=== PATIENT | male | born 1955 | race Caucasian/White ===

== ENCOUNTER 2019-11-15 12:31 | Inpatient (IN) | payer BC, OTHER ==
[2019-11-15] MEDS ORDERED: SODIUM CHLORIDE 0.9% 1,000 ML IV STA (12:38)
[2019-11-15] MEDS ORDERED: SODIUM CHLORIDE 0.9% 500 ML 500 ML IV STA (12:38)
--- NOTE | 2019-11-15 12:44 | ED ---
General Adult HPI - General Chief complaint: GI Bleed Stated complaint: GI bleed Time Seen by Provider: 11/15/19 12:31 Source: patient, EMS, RN notes reviewed, old records reviewed Mode of arrival: EMS Limitations: no limitations - History of Present Illness Initial comments: this is a 64-year-old male presents to the emergency department with a past me dical history significant for alcoholism. Patient states he last drank last night about an hour to an hour and half prior to arrival he started vomiting up blood. Patient states also his stools are very black. Patient states he feels weak and lightheaded. Patient denies any chest pain or palpitations. Patient denies any abdominal pain. Patient denies any back pain. Patient denies any recent fever chills. Patient denies any injury or trauma. Patient states she's had no previous history of vomiting up blood or having a rectal bleed. - Related Data Home Medications Medication Instructions Recorded Confirmed Multivitamins, Thera [Multivitamin 1 tab PO DAILY 11/15/19 11/15/19 (formulary)] Tumeric 1 tab PO DAILY 11/15/19 11/15/19 amLODIPine BESYLATE [Norvasc] 10 mg PO DAILY 11/15/19 11/15/19 Previous Rx's Medication Instructions Recorded Aspirin 81 mg PO DAILY #30 chew 10/26/17 Pantoprazole [Protonix] 40 mg PO AC-BRKFST #30 tablet. 10/26/17 Allergies Allergy/AdvReac Type Severity Reaction Status Date / Time Penicillins Allergy Unknown Verified 11/15/19 14:01 Childhood Review of Systems ROS Statement: Those systems with pertinent positive or pertinent negative responses have been documented in the HPI. ROS Other: All systems not noted in ROS Statement are negative. Past Medical History Additional Past Medical History / Comment(s): Pacemaker, diverticulitis History of Any Multi-Drug Resistant Organisms: None Reported Additional Past Surgical History / Comment(s): colon surgery-bowel resection, cateract surgery, cyst removal Past Psychological History: No Psychological Hx Reported Smoking Status: Current every day smoker Past Alcohol Use History: Abuse, Daily Past Drug Use History: None Reported General Exam - General Exam Comments Initial Comments: GENERAL: Patient is well-developed and well-nourished. Patient is nontoxic and well- hydrated and is in mild distress. ENT: Neck is soft and supple. No significant lymphadenopathy is noted. Oropharynx is clear. Moist mucous membranes. Neck has full range of motion without eliciting any pain. EYES: The sclera were anicteric and time is pale. Extraocular movements were intact and pupils were equal round and reactive to light. Eyelids were unremarkable. PULMONARY: Unlabored respirations. Good breath sounds bilaterally. No audible rales rhonchi or wheezing was noted. CARDIOVASCULAR: There is a regular rate and rhythm without any murmurs gallops or rubs. ABDOMEN: Soft and nontender with normal bowel sounds. No palpable organomegaly was noted. There is no palpable pulsatile mass. SKIN: Sskin is pale NEUROLOGIC: Patient is alert and oriented x3. Cranial nerves II through XII are grossly intact. Motor and sensory are also intact. Normal speech, volume and content. Symmetrical smile. MUSCULOSKELETAL: Normal extremities with adequate strength and full range of motion. No lower extremity swelling or edema. No calf tenderness. LYMPHATICS: No significant lymphadenopathy is noted PSYCHIATRIC: Normal psychiatric evaluation. Limitations: no limitations Course Vital Signs 11/15/19 11/15/19 11/15/19 12:32 12:59 13:00 Temperature 97.2 F L Pulse Rate 97 103 H 98 Respiratory 20 24 26 H Rate Blood Pressure 83/34 90/56 101/57 O2 Sat by Pulse 97 95 115 H Oximetry 11/15/19 11/15/19 11/15/19 13:05 13:10 13:15 Temperature Pulse Rate 101 H 90 95 Respiratory 16 9 L 28 H Rate Blood Pressure 96/67 112/79 111/79 O2 Sat by Pulse 100 100 100 Oximetry 11/15/19 11/15/19 11/15/19 13:20 13:25 13:30 Temperature Pulse Rate 92 103 H Respiratory 14 15 19 Rate Blood Pressure 107/80 85/67 110/77 O2 Sat by Pulse 100 79 L 99 Oximetry 11/15/19 11/15/19 11/15/19 13:35 13:40 13:50 Temperature 98.2 F Pulse Rate 112 H 96 101 H Respiratory 12 19 21 Rate Blood Pressure 110/77 108/74 104/67 O2 Sat by Pulse 100 100 99 Oximetry 11/15/19 14:00 Temperature 98.1 F Pulse Rate 104 H Respiratory 17 Rate Blood Pressure 102/69 O2 Sat by Pulse 100 Oximetry Medical Decision Making - Medical Decision Making EKG shows ventricular paced rhythm at 95 bpm cure is 166 QT interval 458 QTC is 575. I spoke with Dr. Zhang and he stated that he would be down to see the patient I spoke with Dr. Warren he agreed to admit the patient admitted the patient wrote admitting orders.patient received a liter and half of fluid and a unit of blood because he was profusely vomiting. Patient vomited up approximately 1 L blood while in the emergency department. Patient's blood pressure was initially low but after some fluid and bloody responded and his blood pressure was 112 systolic. - Lab Data Result diagrams: 11/15/19 12:43 11/15/19 12:43 Lab Results 11/15/19 11/15/19 11/15/19 Range/Units 12:37 12:43 12:43 WBC 11.0 H (3.8-10.6) k/uL RBC 3.62 L (4.30-5.90) m/uL Hgb 11.3 L (13.0-17.5) gm/dL Hct 34.4 L (39.0-53.0) % MCV 95.0 (80.0-100.0) fL MCH 31.1 (25.0-35.0) pg MCHC 32.8 (31.0-37.0) g/dL RDW 12.8 (11.5-15.5) % Plt Count 289 (150-450) k/uL Neutrophils % 84 % Lymphocytes % 10 % Monocytes % 4 % Eosinophils % 0 % Basophils % 0 % Neutrophils # 9.3 H (1.3-7.7) k/uL Lymphocytes # 1.1 (1.0-4.8) k/uL Monocytes # 0.4 (0-1.0) k/uL Eosinophils # 0.0 (0-0.7) k/uL Basophils # 0.0 (0-0.2) k/uL PT (9.0-12.0) sec INR (<1.2) APTT (22.0-30.0) sec Sodium 137 (137-145) mmol/L Potassium 5.3 H (3.5-5.1) mmol/L Chloride 105 (98-107) mmol/L Carbon Dioxide 24 (22-30) mmol/L Anion Gap 8 mmol/L BUN 44 H (9-20) mg/dL Creatinine 1.10 (0.66-1.25) mg/dL Est GFR (CKD-EPI)AfAm 82 (>60 ml/min/1.73 sqM) Est GFR (CKD-EPI)NonAf 71 (>60 ml/min/1.73 sqM) Glucose 286 H (74-99) mg/dL Calcium 9.0 (8.4-10.2) mg/dL Magnesium 2.0 (1.6-2.3) mg/dL Total Bilirubin 0.8 (0.2-1.3) mg/dL AST 23 (17-59) U/L ALT 24 (4-49) U/L Alkaline Phosphatase 64 (38-126) U/L Troponin I (0.000-0.034) ng/mL Total Protein 5.9 L (6.3-8.2) g/dL Albumin 3.4 L (3.5-5.0) g/dL Serum Alcohol <10 mg/dL Blood Type Blood Type Confirm O Positive Blood Type Recheck Bld Type Recheck Status Antibody Screen Crossmatch Spec Expiration Date 11/15/19 11/15/19 11/15/19 Range/Units 12:43 12:43 12:43 WBC (3.8-10.6) k/uL RBC (4.30-5.90) m/uL Hgb (13.0-17.5) gm/dL Hct (39.0-53.0) % MCV (80.0-100.0) fL MCH (25.0-35.0) pg MCHC (31.0-37.0) g/dL RDW (11.5-15.5) % Plt Count (150-450) k/uL Neutrophils % % Lymphocytes % % Monocytes % % Eosinophils % % Basophils % % Neutrophils # (1.3-7.7) k/uL Lymphocytes # (1.0-4.8) k/uL Monocytes # (0-1.0) k/uL Eosinophils # (0-0.7) k/uL Basophils # (0-0.2) k/uL PT 10.6 (9.0-12.0) sec INR 1.0 (<1.2) APTT 22.2 (22.0-30.0) sec Sodium (137-145) mmol/L Potassium (3.5-5.1) mmol/L Chloride (98-107) mmol/L Carbon Dioxide (22-30) mmol/L Anion Gap mmol/L BUN (9-20) mg/dL Creatinine (0.66-1.25) mg/dL Est GFR (CKD-EPI)AfAm (>60 ml/min/1.73 sqM) Est GFR (CKD-EPI)NonAf (>60 ml/min/1.73 sqM) Glucose (74-99) mg/dL Calcium (8.4-10.2) mg/dL Magnesium (1.6-2.3) mg/dL Total Bilirubin (0.2-1.3) mg/dL AST (17-59) U/L ALT (4-49) U/L Alkaline Phosphatase (38-126) U/L Troponin I 0.027 (0.000-0.034) ng/mL Total Protein (6.3-8.2) g/dL Albumin (3.5-5.0) g/dL Serum Alcohol mg/dL Blood Type O Positive Blood Type Confirm Blood Type Recheck No Previous Record Bld Type Recheck Status CABO Indicated Antibody Screen NEGATIVE Crossmatch See Detail Spec Expiration Date 11/18/2019 234 Disposition Clinical Impression: GI bleed, Hematemesis, Dizziness Disposition: ADMITTED IP TO THIS [facility] Referrals: Josselyn Stark DO [Primary Care Provider] - 1-2 days Time of Disposition: 14:17
[2019-11-15] MEDS ORDERED: OCTREOTIDE 500 MCG in SODIUM CHLORIDE 0.9% 250 ML IV STA (12:45)
[2019-11-15] MEDS ORDERED: OCTREOTIDE 100 MCG/ML INJ IVP STA (12:45)
[2019-11-15 13:10] LABS: Basophils % (A) 0 %; Eosinophils % (A) 0 %; HCT 34.4 % (39.0-53.0); HGB 11.3 gm/dL (13.0-17.5); Lymphocytes # (A) 1.1 k/uL (1.0-4.8); Lymphocytes % (A) 10 %; MCH 31.1 pg (25.0-35.0); MCHC 32.8 g/dL (31.0-37.0); Mean Platelet Volume 8.7; Monocytes # (A) 0.4 k/uL (0-1.0); Monocytes % (A) 4 %; Neutrophils # (A) 9.3 k/uL (1.3-7.7); Neutrophils % (A) 84 %; Platelet Count 289 k/uL (150-450); RBC 3.62 m/uL (4.30-5.90); RDW 12.8 % (11.5-15.5)
[2019-11-15 13:18] LABS: ALT 24 U/L (4-49); AST 23 U/L (17-59); African American GFR (CKD) 82 (>60 ml/min/1.73 sqM); Albumin 3.4 g/dL (3.5-5.0); Alcohol <10 mg/dL; Alkaline Phosphatase 64 U/L (38-126); Anion Gap 8 mmol/L; Blood Urea Nitrogen 44 mg/dL (9-20); Carbon Dioxide 24 mmol/L (22-30); Chloride 105 mmol/L (98-107); Glucose 286 mg/dL (74-99); Non-African American GFR(CKD) 71 (>60 ml/min/1.73 sqM); Potassium 5.3 mmol/L (3.5-5.1); Sodium 137 mmol/L (137-145); Total Bilirubin 0.8 mg/dL (0.2-1.3); Total Protein 5.9 g/dL (6.3-8.2)
[2019-11-15] MEDS ORDERED: ONDANSETRON 4 MG/2 ML VIAL IVP STA (13:24)
[2019-11-15] MEDS ORDERED: PANTOPRAZOLE 40 MG/10 ML VIAL IVP ONE (13:24)
[2019-11-15] MEDS ORDERED: PANTOPRAZOLE 40 MG/10 ML VIAL IVP STA (13:27)
[2019-11-15 13:31] LABS: Partial Thromboplastin Time 22.2 sec (22.0-30.0); Prothrombin Time 10.6 sec (9.0-12.0)
[2019-11-15] MEDS ORDERED: SODIUM CHLORIDE 0.9% 1,000 ML IV ONE (14:20)
[2019-11-15] MEDS ORDERED: PROPOFOL 10 MG/ML 20 ML VIAL IV ONE (14:50)
[2019-11-15] MEDS ORDERED: PHENYLEPHRINE-0.9% NACL SYG 1 MG/10 ML SYRINGE ONE (14:50)
[2019-11-15] MEDS ORDERED: LIDOCAINE 1% INJ 10MG/ML (20 ML MDV) ONE (14:50)
[2019-11-15] MEDS ORDERED: LACTATED RINGERS 500 ML IV ONE (14:50)
[2019-11-15] MEDS ORDERED: fentaNYL (PF) 50 MCG/ML 2 ML AMP ONE (14:50)
--- NOTE | 2019-11-15 15:37 | P.CONS ---
History of Present Illness - Reason for Consult Consult date: 11/15/19 GI bleed Requesting physician: Jonel Beach - Chief Complaint Vomiting blood - History of Present Illness 64-year-old male with a medical history significant for prior episode of diverticulitis, alcohol abuse and prior pacemaker placement who presented to the hospital with complaints of vomiting blood. Patient reports vomiting blood prior to presentation. The patient states he also noted dark colored stool as well as a feeling of lightheadedness and feeling weak. No prior episodes of GI bleeding. Denies any excessive NSAID use. The patient does drink alcohol daily, and states he has been drinking for his whole life. He states at baseline he drinks 6-12 beers daily. He denies any abdominal pain at this time. He denies any signs or symptoms of decompensated alcoholic liver disease. Does report a remote history of colonoscopy. Review of Systems REVIEW OF SYSTEMS: CONSTITUTIONAL: Denies any fevers, chills, weight change but does report feeling weak and fatigued. CARDIOVASCULAR: Denies any chest pain, palpitations high or low blood pressures, does have a history of pacemaker placement. RESPIRATORY: Denies any shortness of breath, hemoptysis or cough. GENITOURINARY: No dysuria or hematuria. MUSCULOSKELETAL: No weakness reported. SKIN: Denies any new rashes or lesions, jaundice or pallor. PSYCHIATRIC: Denies any depression or anxiety. NEUROLOGY: Denies headache, denies any new focal deficits. EARS/NOSE/THROAT: No recent hearing change, congestion, nasal discharge or sore throat. EYES: No pain in eyes, discharge or change in vision. GASTROINTESTINAL: As per HPI. Past Medical History Additional Past Medical History / Comment(s): Pacemaker, diverticulitis History of Any Multi-Drug Resistant Organisms: None Reported Additional Past Surgical History / Comment(s): colon surgery-bowel resection, cateract surgery, cyst removal Past Psychological History: No Psychological Hx Reported Smoking Status: Current every day smoker Past Alcohol Use History: Abuse, Daily Past Drug Use History: None Reported Additional History: Family history: Reviewed with the patient and noncontributory to current medical presentation. Medications and Allergies Home Medications Medication Instructions Recorded Confirmed Type Aspirin 81 mg PO DAILY #30 chew 10/26/17 11/15/19 Rx Pantoprazole [Protonix] 40 mg PO CLARE #30 tablet. 10/26/17 11/15/19 Rx Multivitamins, Thera [Multivitamin 1 tab PO DAILY 11/15/19 11/15/19 History (formulary)] Tumeric 1 tab PO DAILY 11/15/19 11/15/19 History amLODIPine BESYLATE [Norvasc] 10 mg PO DAILY 11/15/19 11/15/19 History Allergies Allergy/AdvReac Type Severity Reaction Status Date / Time Penicillins Allergy Unknown Verified 11/15/19 14:01 Childhood Physical Exam Vitals: Vital Signs Temp Pulse Resp BP Pulse Ox 11/15/19 14:40 109 H 20 11/15/19 14:35 105 H 20 91/53 11/15/19 14:30 97 20 103/79 99 11/15/19 14:25 96 20 112/81 99 11/15/19 14:20 98 20 108/79 99 11/15/19 14:15 95 20 114/74 99 11/15/19 14:10 96 20 112/76 100 11/15/19 14:05 98 20 107/73 100 11/15/19 14:00 98.1 F 104 H 17 102/69 100 11/15/19 13:50 98.2 F 101 H 21 104/67 99 11/15/19 13:40 96 19 108/74 100 11/15/19 13:35 112 H 12 110/77 100 11/15/19 13:30 103 H 19 110/77 99 11/15/19 13:25 15 85/67 79 L 11/15/19 13:20 92 14 107/80 100 11/15/19 13:15 95 28 H 111/79 100 11/15/19 13:10 90 9 L 112/79 100 11/15/19 13:05 101 H 16 96/67 100 11/15/19 13:00 98 26 H 101/57 115 H 11/15/19 12:59 103 H 24 90/56 95 11/15/19 12:32 97.2 F L 97 20 83/34 97 Intake and Output 11/14/19 11/15/19 11/15/19 22:59 06:59 14:59 Intake Total 0 Balance 0 Intake: Blood Product 0 Rc Pheresis 2 As3 Unit 0 [id number] Other: Weight 106.594 kg On physical examination, patient appears comfortable in no apparent distress. HEAD: Normocephalic, atraumatic. EYES: No scleral icterus. No conjunctival injection. MOUTH: No lesions, tongue midline. NECK: Trachea midline, no gross abnormalities. CHEST: Clear to auscultation with no wheezing or rhonchi appreciated. HEART: S1-S2 appreciated. ABDOMEN: Soft, obese. Bowel sounds are positive. No organomegaly. No guarding or rigidity. EXTREMITIES: No pedal edema. SKIN: No rashes, no jaundice. NEUROLOGIC: Alert and oriented x3. No focal deficits. Results CBC & Chem 7: 11/15/19 12:43 11/15/19 12:43 Labs: Abnormal Lab Results - Last 24 Hours (Table) 11/15/19 11/15/19 11/15/19 Range/Units 12:43 12:43 12:43 WBC 11.0 H (3.8-10.6) k/uL RBC 3.62 L (4.30-5.90) m/uL Hgb 11.3 L (13.0-17.5) gm/dL Hct 34.4 L (39.0-53.0) % Neutrophils # 9.3 H (1.3-7.7) k/uL Potassium 5.3 H (3.5-5.1) mmol/L BUN 44 H (9-20) mg/dL Glucose 286 H (74-99) mg/dL Total Protein 5.9 L (6.3-8.2) g/dL Albumin 3.4 L (3.5-5.0) g/dL Crossmatch See Detail Assessment and Plan (1) GI bleed Narrative/Plan: 64-year-old male with a medical history significant for alcohol abuse, prior episode of diverticulitis who presented to the hospital with complaints of vomiting blood. He reports associated dark stool, dizziness and weakness. No prior episodes of GI bleeding. He denies any signs or symptoms of decompensated liver disease. Laboratory evaluation on presentation was significant for a hemoglobin of 11.3, INR 1.0, total bilirubin 0.8, AST 23, ALT 24 with a BUN elevated at 44. Unknown etiology of bleed with differential including variceal bleed given patient's extensive alcohol abuse history, peptic ulcer disease, Jennifer-Guevara tear, Dieulafoy lesion or other etiology. Current Visit: Yes Status: Acute Code(s): K92.2 - GASTROINTESTINAL HEMORRHAGE, UNSPECIFIED SNOMED Code(s): 86619667 (2) Anemia associated with acute blood loss Current Visit: Yes Status: Acute Code(s): D62 - ACUTE POSTHEMORRHAGIC ANEMIA SNOMED Code(s): 421896119 (3) Hematemesis Current Visit: Yes Status: Acute Code(s): K92.0 - HEMATEMESIS SNOMED Code(s): 8911482 Plan: supportive care Nothing by mouth Continue Protonix 40 mg twice daily Continue monitor hemoglobin and hematocrit and transfuse as needed Plan on an emergent EGD for further evaluation Patient may benefit from octreotide if varices are noted on EGD Hold anticoagulation at this time Alcohol abstinence Further recommendations pending findings of EGD Thank you for allowing us to participate in the care of the patient we will continue to follow
--- NOTE | 2019-11-15 15:47 | P.PCN ---
Date of Procedure: 11/15/19 Operative Findings: Description of Procedure: BRIEF HISTORY: 64-year-old male with a medical history significant for prior episode of diverticulitis, alcohol abuse and prior pacemaker placement who presented to the hospital with complaints of vomiting blood. Patient reports vomiting blood prior to presentation. The patient states he also noted dark colored stool as well as a feeling of lightheadedness and feeling weak. No prior episodes of GI bleeding. Denies any excessive NSAID use. The patient does drink alcohol daily, and states he has been drinking for his whole life. He states at baseline he drinks 6-12 beers daily. He denies any abdominal pain at this time. He denies any signs or symptoms of decompensated alcoholic liver disease. Does report a remote history of colonoscopy. PROCEDURE PERFORMED: Esophagogastroduodenoscopy with Endo Clip placement. PREOPERATIVE DIAGNOSIS: Hematemesis, anemia of acute blood loss. ESTIMATED BLOOD LOSS: Minimal. IV sedation per anesthesia. PROCEDURE: After informed consent was obtained, the patient was brought into the endoscopy unit. IV sedation was administered by Anesthesia under continuous monitoring. Initially the Olympus GIF-190 video endoscope was inserted into the mouth. Esophagus intubated without any difficulty. It was gradually advanced into the stomach and duodenum and carefully examined. The bulb and the second part of the duodenum appeared normal, with some old hemolyzed blood noted. The scope at this time was withdrawn to the stomach, adequately insufflated with air, and upon careful examination, mucosa of the antrum, body, cardia and the fundus appeared grossly normal with a large amount of old hemolyzed blood noted in the fundus and cardia. The scope was then withdrawn into the esophagus. The GE junction was located at 39 cm from the incisors. social tear was noted in the distal esophagus just proximal to the GE junction which was oozing blood. This was treated with Endo Clip placement, with 3 endoclips placed over the site and hemostasis achieved. Otherwise the esophagus appeared normal. The patient tolerated the procedure well IMPRESSION: 1. Mucosal tear the distal esophagus treated with Endo Clip placement 3. 2. Old hemolyzed blood noted in the stomach and small bowel. RECOMMENDATIONS: The findings of this examination were discussed with the patient and his family. Okay for ice chips today. Continue to monitor hemoglobin and hematocrit and transfuse as needed. Patient is planned to be transferred to the ICU for further management. Continue Protonix 40 mg IV twice daily. Alcohol abstinence.
[2019-11-15] MEDS ORDERED: LORazepam 2 MG/ML INJ IV PRN ×3 (16:17)
--- NOTE | 2019-11-15 16:25 | P.HPIM ---
History of Present Illness Patient is a pleasant 64-year-old male With complaints of nausea vomiting multiple episodes of hematemesis along with the dark tarry stools or melena. Patient does drink beer about 6-12 a day his last drink was yesterday evening. Patient does use and this aids but his last NSAID use was couple days ago and only takes nonsteroidal anti-inflammatories on as-needed basis for pain and gout. Patient denied any fever chills. She doesn't have any hematochezia. Patient had massive hematemesis any because of which the patient underwent emergent upper GI endoscopy expected to have esophageal varices but no varices were found and patient had esophageal tear and poorly hemolyzed blood. Patient was treated with 3 endoclips to the distal esophagus and is being admitted to intensive care unit for close clinical monitoring. Patient was started on octreotide which will be discontinued has there are no varices. Review of Systems REVIEW OF SYSTEMS: CONSTITUTIONAL: No fever, no malaise, no fatigue. HEENT: No recent visual problems or hearing problems. Denied any sore throat. CARDIOVASCULAR: No chest pain, orthopnea, PND, no palpitations, no syncope. PULMONARY: No shortness of breath, no cough, no hemoptysis. GASTROINTESTINAL as mentioned in HPI, no abdominal pain NEUROLOGICAL: No headaches, no weakness, no numbness. HEMATOLOGICAL: Denies any bleeding or petechiae. GENITOURINARY: Denies any burning micturition, frequency, or urgency. MUSCULOSKELETAL/RHEUMATOLOGICAL: Denies any joint pain, swelling, or any muscle pain. ENDOCRINE: Denies any polyuria or polydipsia. The rest of the 14-point review of systems is negative. Past Medical History Additional Past Medical History / Comment(s): Pacemaker, diverticulitis History of Any Multi-Drug Resistant Organisms: None Reported Additional Past Surgical History / Comment(s): colon surgery-bowel resection, cateract surgery, cyst removal Past Psychological History: No Psychological Hx Reported Smoking Status: Current every day smoker Past Alcohol Use History: Abuse, Daily Past Drug Use History: None Reported Medications and Allergies Home Medications Medication Instructions Recorded Confirmed Type Aspirin 81 mg PO DAILY #30 chew 10/26/17 11/15/19 Rx Pantoprazole [Protonix] 40 mg PO AC-BRKFST #30 tablet. 10/26/17 11/15/19 Rx Multivitamins, Thera [Multivitamin 1 tab PO DAILY 11/15/19 11/15/19 History (formulary)] Tumeric 1 tab PO DAILY 11/15/19 11/15/19 History amLODIPine BESYLATE [Norvasc] 10 mg PO DAILY 11/15/19 11/15/19 History Allergies Allergy/AdvReac Type Severity Reaction Status Date / Time Penicillins Allergy Unknown Verified 11/15/19 14:01 Childhood Physical Exam Vitals: Vital Signs Temp Pulse Pulse Resp BP BP Pulse Ox 11/15/19 16:05 89 16 100/75 97 11/15/19 15:51 92 16 107/77 98 11/15/19 15:44 90 16 113/75 98 11/15/19 15:26 94 16 99/69 95 11/15/19 14:40 109 H 20 11/15/19 14:35 105 H 20 91/53 11/15/19 14:30 97 20 103/79 99 11/15/19 14:25 96 20 112/81 99 11/15/19 14:20 98 20 108/79 99 11/15/19 14:15 95 20 114/74 99 11/15/19 14:10 96 20 112/76 100 11/15/19 14:05 98 20 107/73 100 11/15/19 14:00 98.1 F 104 H 17 102/69 100 11/15/19 13:50 98.2 F 101 H 21 104/67 99 11/15/19 13:40 96 19 108/74 100 11/15/19 13:35 112 H 12 110/77 100 11/15/19 13:30 103 H 19 110/77 99 11/15/19 13:25 15 85/67 79 L 11/15/19 13:20 92 14 107/80 100 11/15/19 13:15 95 28 H 111/79 100 11/15/19 13:10 90 9 L 112/79 100 11/15/19 13:05 101 H 16 96/67 100 11/15/19 13:00 98 26 H 101/57 115 H 11/15/19 12:59 103 H 24 90/56 95 11/15/19 12:32 97.2 F L 97 20 83/34 97 Intake and Output 11/15/19 11/15/19 11/15/19 06:59 14:59 22:59 Intake Total 300 Balance 300 Intake: IV 300 Blood Product 0 Rc Pheresis 2 As3 Unit 0 [id number] Other: Weight 106.594 kg PHYSICAL EXAMINATION: GENERAL: The patient is alert and oriented x3, not in any acute distress. Well developed, well nourished. HEENT: Pupils are round and equally reacting to light. EOMI. No scleral icterus. No conjunctival pallor. Normocephalic, atraumatic. No pharyngeal erythema. No thyromegaly. CARDIOVASCULAR: S1 and S2 present. No murmurs, rubs, or gallops. PULMONARY: Chest is clear to auscultation, no wheezing or crackles. ABDOMEN: Soft, nontender, nondistended, normoactive bowel sounds. No palpable organomegaly. MUSCULOSKELETAL: No joint swelling or deformity. EXTREMITIES: No cyanosis, clubbing, or pedal edema. NEUROLOGICAL: Gross neurological examination did not reveal any focal deficits. SKIN: No rashes. Results CBC & Chem 7: 11/15/19 12:43 11/15/19 12:43 Labs: Abnormal Lab Results - Last 24 Hours (Table) 11/15/19 11/15/19 11/15/19 Range/Units 12:43 12:43 12:43 WBC 11.0 H (3.8-10.6) k/uL RBC 3.62 L (4.30-5.90) m/uL Hgb 11.3 L (13.0-17.5) gm/dL Hct 34.4 L (39.0-53.0) % Neutrophils # 9.3 H (1.3-7.7) k/uL Potassium 5.3 H (3.5-5.1) mmol/L BUN 44 H (9-20) mg/dL Glucose 286 H (74-99) mg/dL Total Protein 5.9 L (6.3-8.2) g/dL Albumin 3.4 L (3.5-5.0) g/dL Crossmatch See Detail Assessment and Plan Plan: If an acute massive upper GI bleed and acute blood loss anemia secondary to upper GI bleed: Patient will be continued on Protonix and octreotide was discontinued and the patient is status post upper GI endoscopy will monitor clinically in ICU will not need repeat hemoglobins CBC will be ordered for tomorrow morning. Aspirin will be held -Leukocytosis reactive secondary to GI bleed -Tachycardia sinus tachycardia: Secondary to acute blood loss and intravasc ularly depletion -Hyperkalemia secondary to hemolysis and the absorption of potassium from the gut. Expected to improve with IV fluids 7 hypertension: Patient is presently hypotensive hold off amlodipine and his hypotension is secondary to acute GI bleed although patient is not in shock. -Elevated blood glucose: Will obtain hemoglobin A1c no history of diabetes mellitus. -Alcohol ABUSE: Counseling was provided patient doesn't believe he'll have all call withdraws although patient will be started on thiamine supplementation and will monitor for any alcohol withdrawal and will be treated accordingly -Nicotine use: Counseling was provided
[2019-11-15 16:37] LABS: Glucose,Whole Blood 189 mg/dL (75-99)
[2019-11-15 17:33] LABS: Basophils % (A) 0 %; Eosinophils % (A) 0 %; HGB 11.1 gm/dL (13.0-17.5); Lymphocytes % (A) 11 %; MCH 31.6 pg (25.0-35.0); MCHC 33.6 g/dL (31.0-37.0); MCV 94.3 fL (80.0-100.0); Mean Platelet Volume 8.8; Monocytes # (A) 0.4 k/uL (0-1.0); Monocytes % (A) 4 %; Neutrophils # (A) 7.4 k/uL (1.3-7.7); Neutrophils % (A) 83 %; Platelet Count 240 k/uL (150-450); RDW 12.9 % (11.5-15.5); WBC 8.9 k/uL (3.8-10.6)
[2019-11-15 17:40] LABS: ALT 23 U/L (4-49); AST 23 U/L (17-59); African American GFR (CKD) >90 (>60 ml/min/1.73 sqM); Albumin 3.4 g/dL (3.5-5.0); Alkaline Phosphatase 57 U/L (38-126); Anion Gap 5 mmol/L; Blood Urea Nitrogen 52 mg/dL (9-20); Calcium 8.6 mg/dL (8.4-10.2); Carbon Dioxide 23 mmol/L (22-30); Chloride 110 mmol/L (98-107); Glucose 167 mg/dL (74-99); Non-African American GFR(CKD) 83 (>60 ml/min/1.73 sqM); Sodium 138 mmol/L (137-145); Total Bilirubin 0.8 mg/dL (0.2-1.3); Total Protein 5.8 g/dL (6.3-8.2)
[2019-11-15] MEDS ORDERED: SODIUM POLYSTYRENE SULFONATE 15 GM/60 ML BOTTLE PO STA (18:24)
--- NOTE | 2019-11-15 18:42 | P.CNPUL ---
History of Present Illness Consult date: 11/15/19 Chief complaint: hematemesis History of present illness: 64-year-old male patient who came in with hematemesis and the patient was vomiting blood prior to his presentation. He also noted some dark colored stool. He felt lightheaded and weak. No previous bouts of GI bleeding. Denies taking any form of nonsteroidal anti-inflammatory medication. He does drink alcohol on a daily basis. He drinks about 6-12 beers on a daily basis. No nausea. No dominant pain. He underwent an EGD and the patient was found to have mucosal tear at the level of distal esophagus and Endo Clip was placed 3. The patient was brought into the intensive care unit following that. He is currently hemodynamically stable. His current blood pressure is 104/79. Saturation 97% on 2 L heart rate is at 93. Global stable at 11.3. The patient is nothing by mouth for now. The patient has a pacemaker inserted 3 years back for a complete heart block. He also has previous history of diverticulosis. Review of Systems Constitutional: Denies chills, Denies fever Eyes: denies as per HPI, denies blurred vision, denies bulging eye, denies decreased vision, denies diplopia, denies discharge, denies dry eye, denies irritation, denies itching, denies pain, denies photophobia, denies loss of peripheral vision, denies loss of vision, denies tunnel vision/blind spots Ears: deny: decreased hearing, ear discharge, earache, tinnitus Ears, nose, mouth and throat: Denies headache, Denies sore throat Breasts: absent: as per HPI, gynecomastia Cardiovascular: Denies chest pain, Denies shortness of breath Respiratory: Reports as per HPI Gastrointestinal: Reports as per HPI, Reports vomiting Genitourinary: Reports as per HPI Musculoskeletal: Reports as per HPI Musculoskeletal: absent: ankle pain, ankle stiffness, ankle swelling, as per HPI, elbow pain, elbow stiffness, elbow swelling, foot pain, foot stiffness, foot swelling, hand pain, hand stiffness, hand swelling, hip pain, hip stiffness, hip swelling, knee pain, knee stiffness, knee swelling, shoulder pain, shoulder stiffness, shoulder swelling, wrist pain, wrist stiffness, wrist swelling Integumentary: Reports as per HPI Neurological: Reports as per HPI, Reports weakness Psychiatric: Reports as per HPI Hematologic/Lymphatic: Reports as per HPI Allergic/Immunologic: Reports as per HPI Past Medical History Additional Past Medical History / Comment(s): Pacemaker, diverticulosis History of Any Multi-Drug Resistant Organisms: None Reported Additional Past Surgical History / Comment(s): colon surgery-bowel resection, cateract surgery, cyst removal Past Psychological History: No Psychological Hx Reported Smoking Status: Current every day smoker Past Alcohol Use History: Abuse, Daily Past Drug Use History: None Reported Medications and Allergies Home Medications Medication Instructions Recorded Confirmed Type Aspirin 81 mg PO DAILY #30 chew 10/26/17 11/15/19 Rx Pantoprazole [Protonix] 40 mg PO AC-BRKFST #30 tablet.dr 10/26/17 11/15/19 Rx Multivitamins, Thera [Multivitamin 1 tab PO DAILY 11/15/19 11/15/19 History (formulary)] Tumeric 1 tab PO DAILY 11/15/19 11/15/19 History amLODIPine BESYLATE [Norvasc] 10 mg PO DAILY 11/15/19 11/15/19 History Allergies Allergy/AdvReac Type Severity Reaction Status Date / Time Penicillins Allergy Unknown Verified 11/15/19 17:38 Childhood Physical Exam Vitals: Vital Signs Temp Pulse Pulse Resp BP BP Pulse Ox 11/15/19 16:05 89 16 100/75 97 11/15/19 16:00 16 11/15/19 15:51 92 16 107/77 98 11/15/19 15:44 90 16 113/75 98 11/15/19 15:26 94 16 99/69 95 11/15/19 14:41 98.0 F 95 18 109/78 98 11/15/19 14:40 109 H 20 11/15/19 14:35 105 H 20 91/53 11/15/19 14:30 97 20 103/79 99 11/15/19 14:25 96 20 112/81 99 11/15/19 14:20 98 20 108/79 99 11/15/19 14:15 95 20 114/74 99 11/15/19 14:10 96 20 112/76 100 11/15/19 14:05 98 20 107/73 100 11/15/19 14:00 98.1 F 104 H 17 102/69 100 11/15/19 13:50 98.2 F 101 H 21 104/67 99 11/15/19 13:40 96 19 108/74 100 11/15/19 13:35 112 H 12 110/77 100 11/15/19 13:30 103 H 19 110/77 99 11/15/19 13:25 15 85/67 79 L 11/15/19 13:20 92 14 107/80 100 11/15/19 13:15 95 28 H 111/79 100 11/15/19 13:10 90 9 L 112/79 100 11/15/19 13:05 101 H 16 96/67 100 11/15/19 13:00 98 26 H 101/57 115 H 11/15/19 12:59 103 H 24 90/56 95 11/15/19 12:32 97.2 F L 97 20 83/34 97 Intake and Output 11/15/19 11/15/19 11/15/19 06:59 14:59 22:59 Intake Total 320 Balance 320 Intake: IV 320 0.9 20 Blood Product 0 Rc Pheresis 2 As3 Unit 0 [id number] Other: Weight 106.594 kg The patient appeared well nourished and normally developed. Vital signs as documented. Head exam is unremarkable. No scleral icterus or corneal arcus noted. Neck is without jugular venous distension, thyromegaly, or carotid bruits. Carotid upstrokes are brisk bilaterally. Lungs are clear to auscultation and percussion. Cardiac exam reveals the PMI to be normally sized and situated. Rhythm is regular. First and second heart sounds normal. No murmurs, rubs or gallops. Abdominal exam reveals normal bowel sounds, no masses, no organomegaly and no aortic enlargement. Extremities are nonedematous and both femoral and pedal pulses are normal.skin the patient has a pacemaker pocket over the left anterior chest area. Results - Laboratory Findings CBC and BMP: 11/15/19 16:59 11/15/19 16:59 PT/INR, D-dimer PT 10.6 sec (9.0-12.0) 11/15/19 12:43 INR 1.0 (<1.2) 11/15/19 12:43 Abnormal lab findings: Abnormal Labs 11/15/19 11/15/19 11/15/19 12:43 12:43 12:43 WBC 11.0 H RBC 3.62 L Hgb 11.3 L Hct 34.4 L Neutrophils # 9.3 H Potassium 5.3 H Chloride BUN 44 H Glucose 286 H POC Glucose (mg/dL) Total Protein 5.9 L Albumin 3.4 L Crossmatch See Detail 11/15/19 11/15/19 11/15/19 16:25 16:59 16:59 WBC RBC 3.50 L Hgb 11.1 L Hct 33.0 L Neutrophils # Potassium 6.0 H Chloride 110 H BUN 52 H Glucose 167 H POC Glucose (mg/dL) 189 H Total Protein 5.8 L Albumin 3.4 L Crossmatch - Diagnostic Findings Chest x-ray: image reviewed Assessment and Plan Plan: 1 hematemesis related to a esophageal mucosal tear and the patient had endoscopy and placement of Endo Clip with adequate control of bleeding. Currently he has already received 2 L of IV fluids and units of packed RBC and hemoglobin level of 11.1. No signs of any ongoing GI bleeding for now. 2 upper GI bleed secondary to above 3 blood loss anemia with a hemoglobin of 11.1 4 hyperkalemia potassium level is at 6.0 5 history of pacemaker insertion for complete heart block and current rhythm is paced 6 history of diverticulosis 7 daily alcohol drinking, consider alcoholism 8 hypertension in on Norvasc Plan IV fluids with normal saline at the rate of 100 mL an hour IV Protonix 2 Amp of sodium bicarbonate addition to D50 insulin and repeat potassium and 1 hour watch for any GI bleeding Keep the patient nothing by mouth Watch for any signs of delirium tremens We'll continue to follow and keep the patient ICU for 24 hours.
[2019-11-15] MEDS ORDERED: DEXTROSE 10 % IN WATER 250 ML IV STA (18:48)
[2019-11-15] MEDS ORDERED: INSULIN REGULAR 100 UNIT/ML VIAL IV STA (18:48)
[2019-11-15] MEDS ORDERED: SODIUM BICARB 8.4% 50 ML SYR (1 MEQ/ML) IV STA (18:48)
[2019-11-15] MEDS: THIAMINE 100 MG TAB PO SCH (19:40)
[2019-11-15] MEDS: PANTOPRAZOLE 40 MG/10 ML VIAL IVP SCH (20:43)
[2019-11-16 05:11] LABS: HCT 25.9 % (39.0-53.0); MCH 31.2 pg (25.0-35.0); MCHC 33.4 g/dL (31.0-37.0); MCV 93.5 fL (80.0-100.0); Mean Platelet Volume 9.2; Platelet Count 198 k/uL (150-450); RBC 2.78 m/uL (4.30-5.90); RDW 13.3 % (11.5-15.5); WBC 8.7 k/uL (3.8-10.6)
[2019-11-16 05:25] LABS: African American GFR (CKD) >90 (>60 ml/min/1.73 sqM); Anion Gap 2 mmol/L; Blood Urea Nitrogen 37 mg/dL (9-20); Calcium 8.5 mg/dL (8.4-10.2); Carbon Dioxide 28 mmol/L (22-30); Chloride 109 mmol/L (98-107); Glucose 134 mg/dL (74-99); Non-African American GFR(CKD) >90 (>60 ml/min/1.73 sqM); Sodium 139 mmol/L (137-145)
[2019-11-16 05:33] LABS: HGB 8.7 gm/dL (13.0-17.5)
[2019-11-16] MEDS: PANTOPRAZOLE 40 MG/10 ML VIAL IVP SCH ×2 (08:34→20:04)
[2019-11-16] MEDS: MULTIVITAMINS, THERA 1 EACH TAB PO SCH (08:35)
[2019-11-16] MEDS: THIAMINE 100 MG TAB PO SCH ×2 (08:35→18:10)
--- NOTE | 2019-11-16 11:26 | P.PN ---
Subjective Progress Note Date: 11/16/19 Principal diagnosis: Acute upper GI bleeding 64-year-old male patient who came in with hematemesis and the patient was vomiting blood prior to his presentation. He also noted some dark colored stool. He felt lightheaded and weak. No previous bouts of GI bleeding. Denies taking any form of nonsteroidal anti-inflammatory medication. He does drink alcohol on a daily basis. He drinks about 6-12 beers on a daily basis. No nausea. No dominant pain. He underwent an EGD and the patient was found to have mucosal tear at the level of distal esophagus and Endo Clip was placed 3. The patient was brought into the intensive care unit following that. He is currently hemodynamically stable. His current blood pressure is 104/79. Saturation 97% on 2 L heart rate is at 93. Global stable at 11.3. The patient is nothing by mouth for now. The patient has a pacemaker inserted 3 years back for a complete heart block. He also has previous history of diverticulosis. On 11/16/2019 patient seen in follow-up in intensive care unit, he is awake and alert, oriented 3, there has been no further bleeding, no hematemesis, no black tarry stools overnight, the patient received a unit of blood this admission, and this morning his blood work shows hemoglobin of 8.7, white blood cells are 8.7, serum sodium is 139, potassium is 4.0, chloride is 109, BUN is 37 creatinine 0.8. he remains nothing by mouth. He did receive octreotide infusion, and IV fluid boluses a total of 2-1/2 L, and his maintenance IV fluids currently infusing at keep open rate, denies any abdominal pain, no nausea, vomiting or diarrhea, no complaints of chest pain or shortness of breath, no tachycardia, room air pulse ox is 94%, hemodynamically patient is stable, today's potassium is 4.0, patient was given some IV sodium bicarbonate and Kayexalate yesterday for potassium of 6.0. Patient was seen by GI service, and he did have a EGD with Endo Clip placement for the mucosal tear in the distal esophagus. Objective - Vital Signs Vital signs: Vital Signs Temp 98.0 F 11/16/19 08:00 Pulse 85 11/16/19 10:00 Resp 17 11/16/19 10:00 BP 95/66 11/16/19 10:00 Pulse Ox 94 L 11/16/19 10:00 Intake & Output 11/15/19 11/16/19 11/16/19 18:59 06:59 18:59 Intake Total 340 1220 300 Output Total 800 Balance 340 420 300 Weight 106.594 kg 109.3 kg Intake: IV 340 1220 300 0.9 40 1220 300 Blood Product 0 Rc Pheresis 2 As3 Unit 0 [id number] Output: Urine 800 Other: Voiding Method Urinal Urinal # Voids 0 - Exam GENERAL EXAM: Alert, very pleasant, 64-year-old white male comfortable in no apparent distress. HEAD: Normocephalic/atraumatic. EYES: Normal reaction of pupils, equal size. Conjunctiva pink, sclera white. NOSE: Clear with pink turbinates. THROAT: No erythema or exudates. NECK: No masses, no JVD, no thyroid enlargement, no adenopathy. CHEST: No chest wall deformity. Symmetrical expansion. LUNGS: Equal air entry with no crackles, wheeze, rhonchi or dullness. CVS: Regular rate and rhythm, normal S1 and S2, no gallops, no murmurs, no rubs ABDOMEN: Soft, nontender. No hepatosplenomegaly, normal bowel sounds, no guarding or rigidity. EXTREMITIES: No clubbing, no edema, no cyanosis, 2+ pulses and upper and lower extremities. MUSCULOSKELETAL: Muscle strength and tone normal. SPINE: No scoliosis or deformity SKIN: No rashes CENTRAL NERVOUS SYSTEM: Alert and oriented -3. No focal deficits, tone is normal in all 4 extremities. PSYCHIATRIC: Alert and oriented -3. Appropriate affect. Intact judgment and insight. - Labs CBC & Chem 7: 11/16/19 04:52 11/16/19 04:52 Labs: Abnormal Lab Results - Last 24 Hours (Table) 11/15/19 11/15/19 11/15/19 Range/Units 12:43 12:43 12:43 WBC 11.0 H (3.8-10.6) k/uL RBC 3.62 L (4.30-5.90) m/uL Hgb 11.3 L (13.0-17.5) gm/dL Hct 34.4 L (39.0-53.0) % Neutrophils # 9.3 H (1.3-7.7) k/uL Potassium 5.3 H (3.5-5.1) mmol/L Chloride (98-107) mmol/L BUN 44 H (9-20) mg/dL Glucose 286 H (74-99) mg/dL POC Glucose (mg/dL) (75-99) mg/dL Total Protein 5.9 L (6.3-8.2) g/dL Albumin 3.4 L (3.5-5.0) g/dL Crossmatch See Detail 11/15/19 11/15/19 11/15/19 Range/Units 16:25 16:59 16:59 WBC (3.8-10.6) k/uL RBC 3.50 L (4.30-5.90) m/uL Hgb 11.1 L (13.0-17.5) gm/dL Hct 33.0 L (39.0-53.0) % Neutrophils # (1.3-7.7) k/uL Potassium 6.0 H (3.5-5.1) mmol/L Chloride 110 H (98-107) mmol/L BUN 52 H (9-20) mg/dL Glucose 167 H (74-99) mg/dL POC Glucose (mg/dL) 189 H (75-99) mg/dL Total Protein 5.8 L (6.3-8.2) g/dL Albumin 3.4 L (3.5-5.0) g/dL Crossmatch 11/16/19 11/16/19 Range/Units 04:52 04:52 WBC (3.8-10.6) k/uL RBC 2.78 L (4.30-5.90) m/uL Hgb 8.7 L D (13.0-17.5) gm/dL Hct 25.9 L (39.0-53.0) % Neutrophils # (1.3-7.7) k/uL Potassium (3.5-5.1) mmol/L Chloride 109 H (98-107) mmol/L BUN 37 H (9-20) mg/dL Glucose 134 H (74-99) mg/dL POC Glucose (mg/dL) (75-99) mg/dL Total Protein (6.3-8.2) g/dL Albumin (3.5-5.0) g/dL Crossmatch Assessment and Plan Plan: Assessment: #1. Hematemesis related to esophageal mucosal tear, status post EGD and Endo Clip placement with adequate control bleeding. #2. Daily GI blood loss anemia, and patient was transfused with one unit of packed red blood cells, and was fluid resuscitated with 2-1/2 L of fluids, hemodynamically stable #3. Hyperkalemia of 6.0, improved and patient has normal renal function on today's labs, and potassium of 4.0 #4. History of permanent pacemaker insertion for history of complete heart bl ock #5. History of diverticulosis #6. Daily EtOH use, patient admits to drinking 6-12 beers daily #7. Hypertension Plan: Continue IV hydration, there has been no further bleeding overnight, he modynamically patient is stable, continue PPI therapy, patient remains nothing by mouth. Monitor for signs of delirium tremens. We'll continue to follow I performed a history & physical examination of the patient and discussed their management with my nurse practitioner, Penny Olsen. I reviewed the nurse practitioner's note and agree with the documented findings and plan of care. Lung sounds are positive for clear breath sounds. The findings and the impression was discussed with the patient. I attest to the documentation by the nurse practitioner. Time with Patient: Less than 30
[2019-11-16 11:44] LABS: Basophils % (A) 0 %; Eosinophils # (A) 0.2 k/uL (0-0.7); Eosinophils % (A) 2 %; HCT 23.6 % (39.0-53.0); HGB 8.1 gm/dL (13.0-17.5); Lymphocytes # (A) 2.1 k/uL (1.0-4.8); Lymphocytes % (A) 27 %; MCH 31.8 pg (25.0-35.0); MCHC 34.2 g/dL (31.0-37.0); Mean Platelet Volume 9.3; Monocytes # (A) 0.3 k/uL (0-1.0); Monocytes % (A) 5 %; Neutrophils # (A) 4.9 k/uL (1.3-7.7); Neutrophils % (A) 64 %; Platelet Count 182 k/uL (150-450); RBC 2.53 m/uL (4.30-5.90); RDW 13.4 % (11.5-15.5); WBC 7.7 k/uL (3.8-10.6)
--- NOTE | 2019-11-16 13:27 | P.PN ---
Subjective Patient is admitted secondary to esophageal tear patient had 1 dark stool today which is probably from the retained blood from yesterday. Patient doesn't have any hematemesis or abdominal pain at this time doesn't have any alcohol withdrawals at this time. Patient is clinically doing well and monitor him 1 more night because of his massive GI bleed the patient is clinically doing well will be discharged tomorrow on proton pump inhibitor. Constitutional: Denied any fatigue denied any fever. Cardio vascular: denied any chest pain, palpitations Gastrointestinal denied any nausea vomiting Pulmonary: Denied any shortness of breath cough Neurologic denied any new focal deficits All inpatient medications were reviewed and appropriate changes in these medications as dictated in the interval history and assessment and plan. Objective - Vital Signs Vital signs: Vital Signs Temp 98.4 F 11/16/19 11:00 Pulse 85 11/16/19 12:00 Resp 14 11/16/19 12:00 BP 105/67 11/16/19 12:00 Pulse Ox 95 11/16/19 12:00 Intake & Output 11/15/19 11/16/19 11/16/19 18:59 06:59 18:59 Intake Total 650 1220 500 Output Total 800 900 Balance 650 420 -400 Weight 106.594 kg 109.3 kg Intake: IV 340 1220 400 0.9 40 1220 400 Intake, IV Titration 100 Amount Sodium Chloride 0.9% 1, 100 000 ml @ 100 mls/hr IV . Q10H ONE Rx#:[id number] Blood Product 310 Rc Pheresis 2 As3 Unit 310 [id number] Output: Urine 800 900 Other: Voiding Method Urinal Urinal # Voids 0 0 - Exam PHYSICAL EXAMINATION: GENERAL: The patient is alert and oriented x3, not in any acute distress. Well developed, well nourished. HEENT: Pupils are round and equally reacting to light. EOMI. no scleral icterus. does have conjunctival pallor. Normocephalic, atraumatic. No pharyngeal erythema. No thyromegaly. CARDIOVASCULAR: S1 and S2 present. No murmurs, rubs, or gallops. PULMONARY: Chest is clear to auscultation, no wheezing or crackles. ABDOMEN: Soft, nontender, nondistended, normoactive bowel sounds. No palpable organomegaly. MUSCULOSKELETAL: No joint swelling or deformity. EXTREMITIES: No cyanosis, clubbing, or pedal edema. NEUROLOGICAL: Gross neurological examination did not reveal any focal deficits. SKIN: No rashes. - Labs CBC & Chem 7: 11/16/19 11:11 11/16/19 04:52 Labs: Abnormal Lab Results - Last 24 Hours (Table) 11/15/19 11/15/19 11/15/19 Range/Units 12:43 16:25 16:59 RBC 3.50 L (4.30-5.90) m/uL Hgb 11.1 L (13.0-17.5) gm/dL Hct 33.0 L (39.0-53.0) % Potassium (3.5-5.1) mmol/L Chloride (98-107) mmol/L BUN (9-20) mg/dL Glucose (74-99) mg/dL POC Glucose (mg/dL) 189 H (75-99) mg/dL Total Protein (6.3-8.2) g/dL Albumin (3.5-5.0) g/dL Crossmatch See Detail 11/15/19 11/16/19 11/16/19 Range/Units 16:59 04:52 04:52 RBC 2.78 L (4.30-5.90) m/uL Hgb 8.7 L D (13.0-17.5) gm/dL Hct 25.9 L (39.0-53.0) % Potassium 6.0 H (3.5-5.1) mmol/L Chloride 110 H 109 H (98-107) mmol/L BUN 52 H 37 H (9-20) mg/dL Glucose 167 H 134 H (74-99) mg/dL POC Glucose (mg/dL) (75-99) mg/dL Total Protein 5.8 L (6.3-8.2) g/dL Albumin 3.4 L (3.5-5.0) g/dL Crossmatch 11/16/19 Range/Units 11:11 RBC 2.53 L (4.30-5.90) m/uL Hgb 8.1 L (13.0-17.5) gm/dL Hct 23.6 L (39.0-53.0) % Potassium (3.5-5.1) mmol/L Chloride (98-107) mmol/L BUN (9-20) mg/dL Glucose (74-99) mg/dL POC Glucose (mg/dL) (75-99) mg/dL Total Protein (6.3-8.2) g/dL Albumin (3.5-5.0) g/dL Crossmatch Assessment and Plan Plan: If an acute massive upper GI bleed and acute blood loss anemia secondary to upper GI bleed: Patient will be continued on Protonix patient will not require any aspirin upon discharge patient will be monitored one more night no more GI bleed clinically will be discharged tomorrow -Leukocytosis reactive secondary to GI bleed resolved now -Tachycardia sinus tachycardia: Secondary to acute blood loss and intravascul gaurang depletion, improved now -Hyperkalemia secondary to hemolysis and the absorption of potassium from the gut. Improved 7 hypertension: hypotensive hold off amlodipine, blood pressures better now -Elevated blood glucose: hemoglobin A1c, pending no history of diabetes mellitus. -Alcohol ABUSE: Patient on alcohol withdrawal protocol but doesn't have any withdrawals at this time -Nicotine use: Counseling was provided
[2019-11-16 14:57] LABS: Hemoglobin A1C 5.9 % (4.0-6.0)
[2019-11-16] MEDS: SODIUM CHLORIDE 0.9% 1,000 ML IV SCH (18:10)
[2019-11-16 18:55] LABS: Basophils % (A) 0 %; Eosinophils # (A) 0.2 k/uL (0-0.7); Eosinophils % (A) 3 %; HCT 23.5 % (39.0-53.0); Lymphocytes # (A) 2.1 k/uL (1.0-4.8); Lymphocytes % (A) 28 %; MCH 32.3 pg (25.0-35.0); MCHC 34.2 g/dL (31.0-37.0); MCV 94.7 fL (80.0-100.0); Monocytes # (A) 0.3 k/uL (0-1.0); Monocytes % (A) 4 %; Neutrophils # (A) 4.7 k/uL (1.3-7.7); Neutrophils % (A) 63 %; Platelet Count 192 k/uL (150-450); RBC 2.48 m/uL (4.30-5.90); RDW 13.2 % (11.5-15.5); WBC 7.5 k/uL (3.8-10.6)
--- NOTE | 2019-11-16 19:46 | P.PN ---
Subjective Progress Note Date: 11/16/19 Principal diagnosis: Upper GI bleed, anemia of acute blood loss, distal esophageal mucosal tear Patient is seen lying in bed. Tolerated liquid diet today. No abdominal pain. Only one dark stool since admission. Objective - Vital Signs Vital signs: Vital Signs Temp 98.4 F 11/16/19 16:00 Pulse 85 11/16/19 16:00 Resp 16 11/16/19 16:00 BP 102/64 11/16/19 16:00 Pulse Ox 94 L 11/16/19 16:00 Intake & Output 11/15/19 11/16/19 11/16/19 18:59 06:59 18:59 Intake Total 650 1220 700 Output Total 800 1800 Balance 650 420 -1100 Weight 106.594 kg 109.3 kg Intake: IV 340 1220 600 0.9 40 1220 600 Intake, IV Titration 100 Amount Sodium Chloride 0.9% 1, 100 000 ml @ 100 mls/hr IV . Q10H ONE Rx#:[id number] Blood Product 310 Rc Pheresis 2 As3 Unit 310 [id number] Output: Urine 800 1800 Other: Voiding Method Urinal Urinal # Voids 0 0 - Exam On physical examination, patient appears comfortable in no apparent distress. HEAD: Normocephalic, atraumatic. EYES: No scleral icterus. No conjunctival injection. MOUTH: No lesions, tongue midline. NECK: Trachea midline, no gross abnormalities. CHEST: Clear to auscultation with no wheezing or rhonchi appreciated. HEART: Regular rate and rhythm. ABDOMEN: Soft, obese. Bowel sounds are positive. No organomegaly. No guarding or rigidity. EXTREMITIES: No pedal edema. SKIN: No rashes, no jaundice. NEUROLOGIC: Alert and oriented x3. No focal deficits. - Labs CBC & Chem 7: 11/16/19 18:30 11/16/19 04:52 Labs: Abnormal Lab Results - Last 24 Hours (Table) 11/15/19 11/15/19 11/15/19 Range/Units 12:43 16:59 16:59 RBC 3.50 L (4.30-5.90) m/uL Hgb 11.1 L (13.0-17.5) gm/dL Hct 33.0 L (39.0-53.0) % Potassium 6.0 H (3.5-5.1) mmol/L Chloride 110 H (98-107) mmol/L BUN 52 H (9-20) mg/dL Glucose 167 H (74-99) mg/dL Total Protein 5.8 L (6.3-8.2) g/dL Albumin 3.4 L (3.5-5.0) g/dL Crossmatch See Detail 11/16/19 11/16/19 11/16/19 Range/Units 04:52 04:52 11:11 RBC 2.78 L 2.53 L (4.30-5.90) m/uL Hgb 8.7 L D 8.1 L (13.0-17.5) gm/dL Hct 25.9 L 23.6 L (39.0-53.0) % Potassium (3.5-5.1) mmol/L Chloride 109 H (98-107) mmol/L BUN 37 H (9-20) mg/dL Glucose 134 H (74-99) mg/dL Total Protein (6.3-8.2) g/dL Albumin (3.5-5.0) g/dL Crossmatch Assessment and Plan (1) GI bleed Narrative/Plan: 64-year-old male with a medical history significant for alcohol abuse, prior episode of diverticulitis who presented to the hospital with complaints of vomiting blood. He reports associated dark stool, dizziness and weakness. No prior episodes of GI bleeding. He denies any signs or symptoms of decompensated liver disease. Laboratory evaluation on presentation was significant for a hemoglobin of 11.3, INR 1.0, total bilirubin 0.8, AST 23, ALT 24 with a BUN elevated at 44 with hemoglobin 8.7 today. EGD performed yesterday significant for a mucosal tear in the distal esophagus which was treated with Endo Clip placement 3. Current Visit: Yes Status: Acute Code(s): K92.2 - GASTROINTESTINAL HEMORRHAGE, UNSPECIFIED SNOMED Code(s): 51693743 (2) Anemia associated with acute blood loss Current Visit: Yes Status: Acute Code(s): D62 - ACUTE POSTHEMORRHAGIC ANEMIA SNOMED Code(s): 969113090 (3) Hematemesis Current Visit: Yes Status: Acute Code(s): K92.0 - HEMATEMESIS SNOMED Code(s): 3361674 Plan: supportive care Clear liquid diet this morning, advance to full liquid diet this evening and a soft diet tomorrow morning if patient remains hemodynamically stable with no further signs or symptoms of GI bleeding Continue Protonix 40 mg twice daily Continue monitor hemoglobin and hematocrit and transfuse as needed Plan on an emergent EGD for further evaluation Alcohol abstinence Okay for discharge tomorrow if bilirubin remains stable and patient tolerates diet without any further signs or symptoms of GI bleeding Thank you for allowing us to participate in the care of the patient, the GI service will stand by, please call us back with any questions or concerns
[2019-11-17 07:21] VITALS: BP 101/61; PULSE 73; RESP 17; TEMP 98.1
[2019-11-17 08:54] LABS: HCT 23.2 % (39.0-53.0); HGB 7.8 gm/dL (13.0-17.5); MCH 31.6 pg (25.0-35.0); MCHC 33.7 g/dL (31.0-37.0); MCV 93.8 fL (80.0-100.0); Mean Platelet Volume 8.8; Platelet Count 182 k/uL (150-450); RBC 2.48 m/uL (4.30-5.90); RDW 13.4 % (11.5-15.5); WBC 7.4 k/uL (3.8-10.6)
[2019-11-17] MEDS: THIAMINE 100 MG TAB PO SCH (09:42)
[2019-11-17] MEDS: SODIUM CHLORIDE 0.9% 1,000 ML IV SCH (09:42)
[2019-11-17] MEDS: PANTOPRAZOLE 40 MG/10 ML VIAL IVP SCH (09:42)
[2019-11-17] MEDS: MULTIVITAMINS, THERA 1 EACH TAB PO SCH (09:42)
--- NOTE | 2019-11-20 17:47 | P.DS ---
Providers Date of admission: 11/15/19 14:21 Attending physician: Kenny Warren Consults: 11/15/19 18:22 Consult Physician Routine Consulting Provider: Javon Magaña Consult Reason/Comments: ICU management Do you want consulting provider notified?: Already Contacted Primary care physician: Josselyn Stark [facility] Course: Patient is admitted secondary to esophageal tear patient had 1 dark stool today which is probably from the retained blood from yesterday. Patient doesn't have any hematemesis or abdominal pain at this time doesn't have any alcohol withdrawals at this time. Patient is clinically doing well and monitor him 1 more night because of his massive GI bleed the patient is clinically doing well will be discharged tomorrow on proton pump inhibitor. 11/17/2019 patient is clinically doing well no overnight events patient will be discharged no evidence of GI bleed any more. Patient will be discharged on Protonix. PHYSICAL EXAMINATION: GENERAL: The patient is alert and oriented x3, not in any acute distress. Well developed, well nourished. HEENT: Pupils are round and equally reacting to light. EOMI. no scleral icterus. does have conjunctival pallor. Normocephalic, atraumatic. No pharyngeal erythema. No thyromegaly. CARDIOVASCULAR: S1 and S2 present. No murmurs, rubs, or gallops. PULMONARY: Chest is clear to auscultation, no wheezing or crackles. ABDOMEN: Soft, nontender, nondistended, normoactive bowel sounds. No palpable organomegaly. MUSCULOSKELETAL: No joint swelling or deformity. EXTREMITIES: No cyanosis, clubbing, or pedal edema. NEUROLOGICAL: Gross neurological examination did not reveal any focal deficits. SKIN: No rashes. Assessment and Plan Plan: acute massive upper GI bleed and acute blood loss anemia secondary to upper GI bleed: Patient will be continued on Protonix , aspirin will be discontinued -Leukocytosis reactive secondary to GI bleed resolved now -Tachycardia sinus tachycardia: Secondary to acute blood loss and intravascularly depletion, improved now -Hyperkalemia secondary to hemolysis and the absorption of potassium from the gut. Improved 7 hypertension: -Elevated blood glucose: hemoglobin A1c, pending the time of discharge -Alcohol ABUSE: Patient on alcohol withdrawal protocol but doesn't have any withdrawals at this time -Nicotine use: Counseling was provided Plan - Discharge Summary New Discharge Prescriptions: New Pantoprazole Sodium [Protonix] 20 mg PO AC-BID #60 tablet. Discontinued Aspirin 81 mg PO DAILY #30 chew Pantoprazole [Protonix] 40 mg PO AC-BRKFST #30 tablet. amLODIPine BESYLATE [Norvasc] 10 mg PO DAILY Multivitamins, Thera [Multivitamin (formulary)] 1 tab PO DAILY No Action Tumeric 1 tab PO DAILY Discharge Medication List Tumeric 1 tab PO DAILY 11/15/19 [History] Pantoprazole Sodium [Protonix] 20 mg PO AC-BID #60 tablet. 11/17/19 [Rx] Follow up Appointment(s)/Referral(s): Josselyn Stark DO [Primary Care Provider] - 3 Days Patient Instructions/Handouts: Gastrointestinal Bleeding (DC) Activity/Diet/Wound Care/Special Instructions: Soft diet as tolerated. No alcohol. Follow with primary care and get CBC re-drawn (blood levels) Discharge Disposition: HOME SELF-CARE
--- NOTE | 2019-11-22 09:33 | CDI ---
Documentation Clarification Form Date: 11/22/19 From: Alva Avalos Phone: If you have a question about this query, please contact Katy Jett, Sales Representative Advertising at [phone] between 8am and 5pm. Admit Date: 11/15/19 Discharge Date:11/17/19 Patient Name: Jus Rooney Visit Number: [id number] ATTENTION: The Clinical Documentation Specialists (CDI) and [facility] Coding Staff appreciate your assistance in clarifying documentation. Please respond to the clarification below the line at the bottom and electronically sign. The CDI & [facility] Coding staff will review the response and follow-up if needed. Please note: Queries are made part of the Legal Health Record. If you have any questions, please contact the author of this message via ITS. Dear Dr. Darshana Louise The patient presented with complaints of nausea and vomiting and multiple episodes of hematemesis along with the dark tarry stools or melena. Patient was found to have a mucosal tear at the distal esophagus. History/Risk Factors: Alcohol abuse Clinical Indicators: Hematemesis Lab findings: Hgb 11.3 on admit and 7.8 on 11/17, Hct. 24.4 on admit and 23.2 on 11/17 Vital Signs: T. 99.8, P. 80, R. 15, BP 83/34 Treatment: EGD with endoclips In your professional opinion, can you please further clarify esophageal mucosal tear? Jennifer-Guevara Tear Due to injury Other, please specify Unable to determine Jennifer-Guevara Tear MTDD
== END 2019-11-17 12:51 | disposition home or self-care (01) | DRG 369 ==
LOC: EC 12:31 → SUPCPDRO 12:31 → 3SCARD 14:21 → 2SICU 15:19 → 4SSUR 11-16 21:40
PROVIDERS: ADMIT Internal Medicine; ATTEND Internal Medicine
PROC: 30233N1 Transfusion of Nonautologous Red Blood Cells into Peripheral Vein, Percutaneous Approach (ICD-10-PCS; 2019-11-15)
PROC: 0W3P8ZZ Control Bleeding in Gastrointestinal Tract, Via Natural or Artificial Opening Endoscopic (ICD-10-PCS; principal; 2019-11-15 14:47)
DX: K22.6 Gastro-esophageal laceration-hemorrhage syndrome (principal); D62 Acute posthemorrhagic anemia; I44.2 Atrioventricular block, complete; K92.0 Hematemesis; I95.9 Hypotension, unspecified; D72.829 Elevated white blood cell count, unspecified; E87.5 Hyperkalemia; F10.10 Alcohol abuse, uncomplicated; F17.200 Nicotine dependence, unspecified, uncomplicated; I10 Essential (primary) hypertension; M10.9 Gout, unspecified; R73.9 Hyperglycemia, unspecified; K57.90 Diverticulosis of intestine, part unspecified, without perforation or abscess without bleeding; Z79.82 Long term (current) use of aspirin; Z79.899 Other long term (current) drug therapy; Z95.0 Presence of cardiac pacemaker; Z88.0 Allergy status to penicillin; Z98.49 Cataract extraction status, unspecified eye; Z96.1 Presence of intraocular lens
CPT/HCPCS: 36415; 36430; 43255; 80048; 80053; 80320; 82728; 83036; 83735; 84132; 84484; 85025; 85027; 85610; 85730; 86850; 86900; 86901; 86920; 93005; 96361; 96365; 96374; 96375; 96376; 99285

== ENCOUNTER → 2020-05-13 | Outpatient (CLI) | payer MEDICARE ==
--- NOTE | 2020-05-13 12:51 | CT ---
EXAMINATION TYPE: CT brain wo con DATE OF EXAM: 05/13/2020 COMPARISON: 10/23/2017 INDICATION: Right arm weakness x5 days. DLP: 1017.6 mGycm, Automated exposure control for dose reduction was used. CONTRAST: None CT of the brain is performed utilizing 3 mm thick sections through the posterior fossa and 3 mm thick sections through the remaining calvarium. Study is performed within 24 hours of arrival to the hosp ital. No abnormal hyperdensity is present to suggest an acute intracranial hemorrhage. No mass lesion is evident. No acute infarcts are evident. Ventricles and sulci are appropriate for the patient age. Paranasal sinuses and mastoid air cells within the [id number] are clear. Subcutaneous nodules are within the scalp. IMPRESSIONS: 1. No acute intracranial process 2. Subcutaneous nodules present previously.
== END | disposition home or self-care (01) ==
LOC: RADCTMAIN 12:19
PROVIDERS: ATTEND Family Medicine
DX: R22.0 Localized swelling, mass and lump, head (principal); I69.339 Monoplegia of upper limb following cerebral infarction affecting unspecified side; R53.1 Weakness
CPT/HCPCS: 70450

== ENCOUNTER 2021-07-31 18:38 | Inpatient (IN) | payer MEDICARE ==
[2021-07-31] MEDS ORDERED: PROPOFOL 10 MG/ML 20 ML VIAL IV ONE (18:58)
[2021-07-31] MEDS ORDERED: SODIUM CHLORIDE 0.9% 1,000 ML IV STA (18:59)
--- NOTE | 2021-07-31 19:20 | XR ---
EXAMINATION TYPE: XR ankle limited RT DATE OF EXAM: 07/31/2021 COMPARISON: NONE HISTORY: Twisted ankle. Pain. TECHNIQUE: 2 views FINDINGS: There is a lateral dislocation of the talus. There is transverse fracture of the medial mal leolus with lateral displacement 2.2 cm. There is comminuted fracture distal shaft of the fibula with separation of the distal fibula tibia joint. There is no definite posterior malleolus fracture. Ther e is plantar calcaneal spurring. IMPRESSION: Bimalleolar fracture of the ankle with lateral dislocation of the talus.
--- NOTE | 2021-07-31 19:25 | ED ---
General Adult HPI - General Chief complaint: Extremity Injury, Lower Stated complaint: Ankle Injury Source: patient Mode of arrival: EMS Limitations: no limitations - History of Present Illness Initial comments: Dictation was produced using [employer] dictation software. please excuse any grammatical, word or spelling errors. Chief Complaint: 65-year-old male presents with leg injury History of Present Illness: This 65-year-old male is brought in by EMS. Patient they said he tried to take a step off of a stump when his right ankle inverted. He noticed severe intense pain to his right ankle. EMS was called. EMS placed patient in a splint. Patient reports having had 8 beers he has history of surgery. Hasn't had no problems with anesthesia.. The ROS documented in this emergency department record has been reviewed and confirmed by me. Those systems with pertinent positive or negative responses have been documented in the HPI. All other systems are other negative and/or noncontributory. PHYSICAL EXAM: General Impression: Alert and oriented x3, not in acute distress HEENT: Normocephalic atraumatic, extra-ocular movements intact, pupils equal and reactive to light bilaterally, mucous membranes moist. Cardiovascular: Heart regular rate and rhythm Chest: Able to complete full sentences, no retractions, no tachypnea Musculoskeletal: Pulses present and equal in all extremities, no peripheral edema Motor: no focal deficits noted Neurological: CN II-XII grossly intact, no focal motor or sensory deficits noted Skin: Intact with no visualized rashes Right lower extremity: Dislocated right ankle with lateral rotation ED course: 65-year-old male presents with what appears to be a fracture dislocation to the right ankle. Attempt was made to reduce ankle without any sedation however he did not tolerated. As upon arrival are within acceptable limits. Patient is given 150 mg propofol. Reduction was performed. Splint was applied. Tolerated procedure well. Crutches at the bedside. He is given outpatient referral to orthopedic surgery. He is told to be nonweightbearing to the right lower extremity. Patient is prescribed by mouth analgesics. Patient agreeable with discharge. Patient to follow-up with orthopod on Tuesday. - Related Data Home Medications Medication Instructions Recorded Confirmed Albuterol Sulfate [Albuterol 2 puff PO RT-Q6H PRN 07/31/21 07/31/21 Sulfate Hfa] Pantoprazole Sodium [Protonix] 20 mg PO BID 07/31/21 07/31/21 amLODIPine BESYLATE/BENAZEPRIL 1 cap PO DAILY 07/31/21 07/31/21 [amLODIPine BESYLATE/BENAZEPRIL 10-20 mg] Previous Rx's Medication Instructions Recorded HYDROcodone/APAP 5-325MG [[place] 1 tab PO Q6HR PRN 3 Days #12 tab 07/31/21 5-325] Allergies Allergy/AdvReac Type Severity Reaction Status Date / Time Penicillins Allergy Unknown Verified 07/31/21 20:08 Childhood Review of Systems ROS Statement: Those systems with pertinent positive or pertinent negative responses have been documented in the HPI. ROS Other: All systems not noted in ROS Statement are negative. Past Medical History Additional Past Medical History / Comment(s): Pacemaker, diverticulosis History of Any Multi-Drug Resistant Organisms: None Reported Additional Past Surgical History / Comment(s): colon surgery-bowel resection, cateract surgery, cyst removal Past Psychological History: No Psychological Hx Reported Smoking Status: Current every day smoker Past Alcohol Use History: Abuse, Daily Past Drug Use History: Marijuana General Exam Limitations: no limitations Course Vital Signs 07/31/21 07/31/21 07/31/21 18:44 19:10 19:15 Temperature 97.8 F Pulse Rate 85 87 86 Respiratory 22 18 10 L Rate Blood Pressure 115/84 115/84 131/109 O2 Sat by Pulse 98 97 95 Oximetry 07/31/21 19:20 Temperature Pulse Rate 91 Respiratory 19 Rate Blood Pressure 150/95 O2 Sat by Pulse 95 Oximetry Procedures - Orthopedic Fracture Reduction Fracture #1 Consent Obtained: verbal consent, written consent Side: right Fracture Reduction Location: other (ankle) Analgesia: procedural sedation Technique: direct manipulation Post Reduction X-rays Demonstrate: anatomical reduction Post-Reduction Neuro Exam: intact Post-Reduction Vascular Exam: intact Splint Applied: Yes Patient Tolerated Procedure: well - Orthopedic Splinting/Casting Injury #1 Side: right Lower Extremity Injury Location: ankle Other Orthopedic Equipment: crutches - Procedural Sedation Procedural Sedation Start Time: 19:10 Procedural Sedation Stop Time: 19:20 Indications: fracture/dislocation reduction ASA Class: II Mallampati Airway Score: 2 Preparation: quality assurance monitor chassis applied, pulse oximeter, capnometry used, supplemental O2 applied IV Propofol Dose (mgs): 150 Complications: hypoventilation Interventions: assist by BVM Patient Tolerated Procedure: well Disposition Clinical Impression: Ankle fracture Disposition: HOME SELF-CARE Condition: Good Instructions (If sedation given, give patient instructions): Ankle Fracture (ED), Procedural Sedation (ED) Additional Instructions: Nonweightbearing to fractured ankle and elevate when at rest as much as possible. Prescriptions: HYDROcodone/APAP 5-325MG [[place] 5-325] 1 tab PO Q6HR PRN 3 Days #12 tab PRN Reason: Severe Pain Is patient prescribed a controlled substance at d/c from ED?: Yes If prescribed controlled substance>3 days was MAPS reviewed?: Prescribed <3 Days Referrals: Demarcus Estrada MD [Medical Doctor] - 1-2 days
--- NOTE | 2021-07-31 19:43 | XR ---
EXAMINATION TYPE: XR ankle complete RT DATE OF EXAM: 07/31/2021 COMPARISON: Today HISTORY: Post reduction TECHNIQUE: 2 views FINDINGS: There is bimalleolar fracture of the ankle. The talus is in reasonable anatomic position. T here is comminuted fracture distal fibula. There is plantar calcaneal spurring. IMPRESSION: There is satisfactory anatomic reduction of the bimalleolar fracture of the ankle compare d to initial exam.
[2021-07-31] MEDS ORDERED: ACET/COD 300 MG/30 MG STARTER PACK 6 TAB BTL PO STA (20:15)
[2021-07-31] MEDS ORDERED: NALOXONE 0.4 MG/ML 1 ML VIAL IV PRN (20:21)
--- NOTE | 2021-07-31 20:21 | ED ---
Medical Decision Making - Medical Decision Making She was about to be discharged when Dr. Estrada called back and requested that patient be admitted for possible surgical intervention tomorrow if there is enough reduction in swelling. Medicine consulted for medical clearance. Preop labs, chest x-ray and EKG ordered. Disposition Clinical Impression: Ankle fracture Disposition: ADMITTED IP TO THIS [facility] Condition: Good Instructions (If sedation given, give patient instructions): Ankle Fracture (ED), Procedural Sedation (ED) Additional Instructions: Nonweightbearing to fractured ankle and elevate when at rest as much as possible. Prescriptions: HYDROcodone/APAP 5-325MG [[place] 5-325] 1 tab PO Q6HR PRN 3 Days #12 tab PRN Reason: Severe Pain Referrals: Demarcus Estrada MD [Medical Doctor] - 1-2 days Procedures - [place] Protocol (Time Out) Procedure Performed:: Dr. Bobo Nurse: Arslan Horton Respiratory Therapist: Xiang Jasso Patient Identification (2 identifiers required): Chart, Verbal, Arm Band, Name, Birthdate Patient/Legal [employer] has Confirmed: Identity, Site, Procedure, Consent Site: Right Ankle Site Marked: Not Applicable Site Verified With Patient/Guardian: Yes Final Confirmation: Procedure
--- NOTE | 2021-07-31 21:21 | XR ---
EXAMINATION TYPE: XR chest 1V DATE OF EXAM: 07/31/2021 COMPARISON: 10/26/2017 HISTORY: Preop TECHNIQUE: FINDINGS: Heart and mediastinum are normal. Lungs are clear. Diaphragm is normal. There are no hilar masses. There is left axillary pacemaker. There are chest leads. Bony thorax appears intact. IMPRESSION: No active cardiopulmonary disease. No change.
[2021-07-31] MEDS: MORPHINE SULFATE 4 MG/ML SYRINGE IV PRN (21:29)
[2021-07-31] MEDS: SODIUM CHLORIDE 0.9% 1,000 ML IV SCH (21:30)
[2021-07-31 21:51] LABS: Basophils % (A) 0 %; Eosinophils # (A) 0.1 k/uL (0-0.7); Eosinophils % (A) 1 %; HCT 45.7 % (39.0-53.0); HGB 15.3 gm/dL (13.0-17.5); Lymphocytes # (A) 1.2 k/uL (1.0-4.8); Lymphocytes % (A) 12 %; MCH 31.9 pg (25.0-35.0); MCHC 33.6 g/dL (31.0-37.0); Mean Platelet Volume 8.7; Monocytes # (A) 0.5 k/uL (0-1.0); Monocytes % (A) 5 %; Neutrophils # (A) 8.4 k/uL (1.3-7.7); Neutrophils % (A) 80 %; Platelet Count 206 k/uL (150-450); RBC 4.81 m/uL (4.30-5.90); RDW 13.1 % (11.5-15.5); WBC 10.5 k/uL (3.8-10.6)
--- NOTE | 2021-07-31 22:00 | CT ---
CT scan of the right ankle. History fracture. Comparison none. TECHNIQUE: Images obtained from the mid tibia to the bottom of the foot without contrast. FINDINGS: There is oblique fracture distal shaft of the fibula with comminution. This is a spiral type fracture . There is also transverse fracture through the medial malleolus. There is lateral displacement of th e talus 13 mm. The talus appears intact. There is plantar calcaneal spurring. Calcaneus is intact. Elbert andressa of the midfoot appear intact. There is a 2.5 x 0.8 cm large chip fracture of the posterior malleo lizzie. There is mild posterior displacement of the talus. There is subcutaneous edema around the ankle and hindfoot. IMPRESSION: There is trimalleolar fracture of the ankle with posterior and lateral displacement of the talus.
[2021-07-31 22:01] LABS: African American GFR (CKD) >90 (>60 ml/min/1.73 sqM); Anion Gap 15 mmol/L; Blood Urea Nitrogen 15 mg/dL (9-20); Calcium 9.4 mg/dL (8.4-10.2); Carbon Dioxide 16 mmol/L (22-30); Chloride 99 mmol/L (98-107); Glucose 167 mg/dL (74-99); Non-African American GFR(CKD) 82 (>60 ml/min/1.73 sqM); Sodium 130 mmol/L (137-145)
[2021-07-31 22:16] LABS: Potassium 4.6 mmol/L (3.5-5.1)
[2021-07-31 23:41] LABS: Partial Thromboplastin Time 25.2 sec (22.0-30.0); Prothrombin Time 10.2 sec (9.0-12.0)
[2021-08-01] MEDS: MORPHINE SULFATE 4 MG/ML SYRINGE IV PRN (04:53)
--- NOTE | 2021-08-01 09:07 | P.HPOR ---
History of Present Illness H&P Date: 08/01/21 This patient is a 65-year-old male who is a current every day smoker with a pacemaker that presented to [facility] emergency department via EMS on 07/31/21, with complaints of right ankle injury deformity. The patient states he was stepping up onto a stump, and fell off off twisting his ankle. He noticed immediate deformity of the ankle. EMS was called and he was transferred to [facility] emergency department. X-rays in the emergency department revealed a bimalleolar ankle fracture dislocation. Ankle was reduced in the emergency department in a splint was placed. He is admitted to the care of Dr. Estrada for further treatment. Patient is seen and examined bedside this morning. He states he is experiencing moderate pain in the right ankle. He denies additional injuries or complaints at this time. He denies chest pain, shortness breath, nausea, vomiting, fevers chills. There are no additional complaints at this time. Vital signs stable. Past Medical History Past Medical History: COPD Additional Past Medical History / Comment(s): Pacemaker, diverticulosis History of Any Multi-Drug Resistant Organisms: None Reported Additional Past Surgical History / Comment(s): colon surgery-bowel resection, cateract surgery, cyst removal Past Anesthesia/Blood Transfusion Reactions: No Reported Reaction Past Psychological History: No Psychological Hx Reported Smoking Status: Current every day smoker Past Alcohol Use History: Abuse, Daily Past Drug Use History: Marijuana Medications and Allergies Home Medications Medication Instructions Recorded Confirmed Type Albuterol Sulfate [Albuterol 2 puff PO RT-Q6H PRN 07/31/21 07/31/21 History Sulfate Hfa] HYDROcodone/APAP 5-325MG [[place] 1 tab PO Q6HR PRN 3 Days #12 tab 07/31/21 Rx 5-325] Pantoprazole Sodium [Protonix] 20 mg PO BID 07/31/21 07/31/21 History amLODIPine BESYLATE/BENAZEPRIL 1 cap PO DAILY 07/31/21 07/31/21 History [amLODIPine BESYLATE/BENAZEPRIL 10-20 mg] Allergies Allergy/AdvReac Type Severity Reaction Status Date / Time Penicillins Allergy Unknown Verified 07/31/21 20:08 Childhood Physical Examination On examination, the patient is in no apparent distress. He is alert and oriented 3. His head appears normocephalic and atraumatic. His breathing appears nonlabored. On inspection of the bilateral upper extremities, there are no obvious deformities or signs of trauma. On inspection of the left lower extremity, there are no obvious deformities or signs of trauma. On inspection of the right lower extremity, there is a short-leg posterior splint in place. Patient is able to wiggle toes appropriately. No pain to passive range of motion of the toes. The visible portion of the toes are warm and well-perfused with brisk capillary refill distally. Results Right ankle CT scan taken on 07/31/21: Trimalleolar ankle fracture with lateral transition of the talus. - Labs Labs: Abnormal Lab Results - Last 24 Hours (Table) 07/31/21 07/31/21 Range/Units 21:45 21:45 Neutrophils # 8.4 H (1.3-7.7) k/uL Sodium 130 L (137-145) mmol/L Carbon Dioxide 16 L (22-30) mmol/L Glucose 167 H (74-99) mg/dL H & H 07/31/21 Range/Units 21:45 Hgb 15.3 (13.0-17.5) gm/dL Hct 45.7 (39.0-53.0) % Coagulation 07/31/21 Range/Units 22:40 INR 1.0 (<1.2) Result Diagrams: 07/31/21 21:45 07/31/21 21:45 Assessment and Plan Assessment: Trimalleolar ankle fracture dislocation, right ankle Plan: - Patient was discussed in detail Dr. Estrada. We will plan to take patient to the operating room today for open reduction internal fixation of the right ankle, versus ex fix, versus closed reduction and splinting. Internal medicine has been consulted for medical clearance. This is explained to the patient and he is in agreement with this plan. - Pain management as needed. - Strict nonweightbearing right lower extremity. - NPO diet.
[2021-08-01] MEDS: SODIUM CHLORIDE 0.9% 1,000 ML IV SCH ×2 (09:31→21:10)
[2021-08-01] MEDS: HYDROmorphone 0.5 MG/0.5 ML SYRINGE IVP PRN ×5 (09:35→18:21)
[2021-08-01] MEDS ORDERED: LIDOCAINE 1% INJ 10MG/ML (20 ML MDV) SQ ONE (10:38)
--- NOTE | 2021-08-01 11:06 | P.CONS ---
History of Present Illness - Reason for Consult Consult date: 08/01/21 Medical clearance for surgery - Chief Complaint Ankle fracture - History of Present Illness 65-year-old male patient with history of pacemaker placement, diverticulosis with bowel resection who presents to ED with complaint of severe pain to right ankle; patient reports that he tried to take a step off of the stem 1 his right ankle inverted followed by severe intense pain; EMS was called and patient's ankle was placed in a splint; patient did report having 8 beers when he was in ED Workup in ED revealed a fracture dislocation to right ankle which was attempted to be reduced in ED without any sedation; patient did not tolerate the attempt; reduction was attempted again after 150 mg of propofol followed by splinting Initial plan was to discharge patient home with outpatient follow-up with orthopedic surgery on Tuesday; however orthopedic team felt patient needed to be admitted for possible surgical intervention if there is enough reduction in swelling Review of Systems REVIEW OF SYSTEMS: CONSTITUTIONAL: No fever, no malaise, no fatigue. HEENT: No recent visual problems or hearing problems. Denied any sore throat. CARDIOVASCULAR: No chest pain, orthopnea, PND, no palpitations, no syncope. PULMONARY: No shortness of breath, no cough, no hemoptysis. GASTROINTESTINAL: No diarrhea, no nausea, no vomiting, no abdominal pain. NEUROLOGICAL: No headaches, no weakness, no numbness. HEMATOLOGICAL: Denies any bleeding or petechiae. GENITOURINARY: Denies any burning micturition, frequency, or urgency. MUSCULOSKELETAL/RHEUMATOLOGICAL: Denies any joint pain, swelling, or any muscle pain. ENDOCRINE: Denies any polyuria or polydipsia. The rest of the 14-point review of systems is negative. Past Medical History Past Medical History: COPD Additional Past Medical History / Comment(s): Pacemaker, diverticulosis History of Any Multi-Drug Resistant Organisms: None Reported Additional Past Surgical History / Comment(s): colon surgery-bowel resection, cateract surgery, cyst removal Past Anesthesia/Blood Transfusion Reactions: No Reported Reaction Past Psychological History: No Psychological Hx Reported Smoking Status: Current every day smoker Past Alcohol Use History: Abuse, Daily Past Drug Use History: Marijuana Medications and Allergies Home Medications Medication Instructions Recorded Confirmed Type Albuterol Sulfate [Albuterol 2 puff PO RT-Q6H PRN 07/31/21 07/31/21 History Sulfate Hfa] HYDROcodone/APAP 5-325MG [Luke 1 tab PO Q6HR PRN 3 Days #12 tab 07/31/21 Rx 5-325] Pantoprazole Sodium [Protonix] 20 mg PO BID 07/31/21 07/31/21 History amLODIPine BESYLATE/BENAZEPRIL 1 cap PO DAILY 07/31/21 07/31/21 History [amLODIPine BESYLATE/BENAZEPRIL 10-20 mg] Allergies Allergy/AdvReac Type Severity Reaction Status Date / Time Penicillins Allergy Unknown Verified 07/31/21 20:08 Childhood Physical Exam Vitals: Vital Signs Temp Pulse Pulse Resp BP BP Pulse Ox 08/01/21 07:07 98.4 F 75 16 127/75 96 08/01/21 04:32 98.1 F 103 H 17 129/75 96 08/01/21 00:48 98.1 F 103 H 17 129/75 96 07/31/21 19:20 91 19 150/95 95 07/31/21 19:15 86 10 L 131/109 95 07/31/21 19:10 87 18 115/84 97 07/31/21 18:44 97.8 F 85 22 115/84 98 Intake and Output 07/31/21 08/01/21 08/01/21 22:59 06:59 14:59 Intake Total 1000 Output Total 5900 1510 Balance -4900 -1510 Intake: Intake, IV Titration 900 Amount Sodium Chloride 0.9% 1, 900 000 ml @ 75 mls/hr IV . [id number] [facility] Rx#:[id number] Oral 100 Output: Urine 5900 1510 Other: # Bowel Movements 0 0 Weight 106.594 kg General appearance: Present: average body habitus, cooperative, no acute distress Eyes: Present: anicteric sclerae, EOMI, PERRLA, normal appearance Neck: Present: normal ROM. Absent: lymphadenopathy, rigidity, thyromegaly Carotids: negative: bruit present Thyroid: bilateral: normal size, negative: enlarged, nodule Respiratory: bilateral: CTA, negative: rales, rhonchi, wheezing Cardiovascular; Rhythm: regular; normal: S1, S2 Gastrointestinal: Present: normal bowel sounds, soft. Absent: distended, organomegaly, tenderness Genitourinary Comment(s): deferred Integumentary: Present: normal turgor. Absent: jaundiced, rash, ulcer Neurologic: Present: CNII-XII intact. Absent: focal deficits Musculoskeletal: Right ankle in splint Psychiatric: Present: A&O x's 3, appropriate affect, intact judgment & insight Results CBC & Chem 7: 07/31/21 21:45 07/31/21 21:45 Labs: Abnormal Lab Results - Last 24 Hours (Table) 07/31/21 07/31/21 Range/Units 21:45 21:45 Neutrophils # 8.4 H (1.3-7.7) k/uL Sodium 130 L (137-145) mmol/L Carbon Dioxide 16 L (22-30) mmol/L Glucose 167 H (74-99) mg/dL Assessment and Plan Assessment: 1. Right ankle fracture; patient scheduled for OR with orthopedic surgery; your management 2. 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 Asthma; not in exacerbation; Continue with albuterol inhaler as needed 4. Hypertension; patient takes amlodipine/Benzapril 1020 milligrams daily; we will hold off on oral antihypertensive therapy while patient is being prepped for surgery and is nothing by mouth; plan to use IV hydralazine as needed; we will resume home therapy once oral intake is established 5. Gastroesophageal reflux disease; patient takes Protonix 20 mg twice a day; we will resume post surgery Labs and EKG reviewed; patient is medically cleared for SX DVT prophylaxis; SCDs only pending surgical procedure CODE STATUS; full code
[2021-08-01] MEDS ORDERED: LACTATED RINGERS 1,000 ML IV SCH (12:00)
[2021-08-01] MEDS ORDERED: LIDOCAINE 1% INJ 10MG/ML (20 ML MDV) ONE (15:15)
[2021-08-01] MEDS ORDERED: fentaNYL (PF) 50 MCG/ML 2 ML AMP ONE (15:15)
[2021-08-01] MEDS ORDERED: KETAMINE 10 MG/ML 20 ML VIAL ONE (15:15)
[2021-08-01] MEDS ORDERED: MIDAZOLAM 2 MG/2 ML VIAL ONE (15:15)
[2021-08-01] MEDS ORDERED: PROPOFOL 10 MG/ML 20 ML VIAL IV ONE (15:15)
[2021-08-01] MEDS ORDERED: IV FLUID CONTINUATION 500 ML IV ONE (15:20)
--- NOTE | 2021-08-01 15:47 | P.DS ---
Providers Date of admission: 07/31/21 20:22 Expected date of discharge: 08/01/21 Attending physician: Demarcus Estrada Consults: 07/31/21 20:22 Consult Physician Routine Consulting Provider: Bela Waite Consult Reason/Comments: medical clearance Do you want consulting provider notified?: Yes Primary care physician: Josselyn Mi [facility] Course: This patient is a 65-year-old male who is a current every day smoker who sustained a fall resulting in a right ankle fracture dislocation. Patient was transported to [facility] emergency department. X-rays and CT scan of the right ankle emergency department revealed a trimalleolar fracture dislocation. Attempts were made at reduction in the emergency department. Postreduction films showed persistent widening of the ankle mortise. Patient was admitted under the care of Dr. Estrada for further management. Patient was taken to the operating room on 08/01/21 for a closed reduction and splint application of the right trimalleolar ankle fracture dislocation. Patient tolerated this procedure well. Patient may discharge home following this procedure with close follow-up in our office as an outpatient. Please refer to the [facility] rec for accurate list of medications. Patient Condition at Discharge: Good Plan - Discharge Summary Discharge Rx Participant: No New Discharge Prescriptions: New HYDROcodone/APAP 5-325MG [Magnolia 5-325] 1 tab PO Q6HR PRN 7 Days #28 tab PRN Reason: Pain No Action amLODIPine BESYLATE/BENAZEPRIL [amLODIPine BESYLATE/BENAZEPRIL 10-20 mg] 1 cap PO DAILY Albuterol Sulfate [Albuterol Sulfate Hfa] 2 puff PO RT-Q6H PRN PRN Reason: Shortness Of Breath Pantoprazole Sodium [Protonix] 20 mg PO BID Discharge Medication List Albuterol Sulfate [Albuterol Sulfate Hfa] 2 puff PO RT-Q6H PRN 07/31/21 [History] Pantoprazole Sodium [Protonix] 20 mg PO BID 07/31/21 [History] amLODIPine BESYLATE/BENAZEPRIL [amLODIPine BESYLATE/BENAZEPRIL 10-20 mg] 1 cap PO DAILY 07/31/21 [History] HYDROcodone/APAP 5-325MG [Magnolia 5-325] 1 tab PO Q6HR PRN 7 Days #28 tab 08/01/21 [Rx] Follow up Appointment(s)/Referral(s): Demarcus Estrada MD [Medical Doctor] - 1-2 days Patient Instructions/Handouts: Ankle Fracture (ED), Procedural Sedation (ED) Activity/Diet/Wound Care/Special Instructions: Nonweightbearing to fractured ankle and elevate when at rest as much as possible. Keep splint intact until follow-up appointment. Pain medications as prescribed. Follow-up in the office in one week with Dr. Estrada. Call the office with any questions or concerns, . Discharge Disposition: HOME SELF-CARE
--- NOTE | 2021-08-01 15:50 | P.OP ---
Date of Procedure: 08/01/21 Preoperative Diagnosis: 1. Closed right trimalleolar ankle fracture dislocation 2. Current every day cigarette smoker Postoperative Diagnosis: Same Procedure(s) Performed: Closed reduction of right trimalleolar ankle fracture dislocation and application of short leg splint by physician, right ankle as part of a staged procedure Anesthesia: MAC Surgeon: Demarcus Estrada Condition: stable Disposition: PACU Indications for Procedure: The patient is a 65-year-old male with a medical history significant for being a current every day cigarette smoker. He sustained a fall resulting in a closed right trimalleolar ankle fracture. He was placed in a splint in the emergency department continue to have some pain in his x-rays showed lateral subluxation of the talus. Due to the patient's cigarette smoking I wanted him placed in a better splint with an anatomic reduction. He was admitted overnight with the plan to take him to the operating room today for repeat closed reduction and application of a well-padded splint versus open reduction and internal fixation if his soft tissue was amenable. I met with the patient preoperatively discussed the potential risks and complications. He is well aware. He provided his verbal and written consent to go forward with surgery. Operative Findings: There is diffuse swelling throughout the right ankle with no wrinkling of the skin. Description of Procedure: The patient was identified in preoperative holding and the correct right leg was marked with my initials. I reviewed the consent form with the patient all of his questions were answered. The patient was then brought back to the operating room He was positioned on the OR table and a Mac sedation was administered by anesthesia. A timeout was performed identifying the correct patient, operative extremity, and procedure. The right splint from the emergency room was taken down. On inspection of the skin there was swelling with no wrinkling of the skin. Due to the patient's cigarette smoking I did not feel it was safe to proceed with open reduction and internal fixation. A manual reduction was performed using the Joseluis maneuver. The ankle was anatomically reduced and was verified with fluoroscopy. A well-padded bulky Bhatt splint was placed with a varus mold. Once the splint had completely set fluoroscopy was once again brought in. The ankle was anatomically reduced on both a mortise and lateral view. The patient was then awoken from his sedation, transferred to a gurbaraga, and brought to recovery having tolerated the procedure well. Plan: The patient can discharge home today. He is remain strictly nonweightbearing on his right leg. He was encouraged ice and elevate his leg. He was encouraged to quit smoking. He will follow-up with me in the office in 7-10 days to schedule surgery.
--- NOTE | 2021-08-01 16:30 | XR ---
EXAMINATION TYPE: XR ankle limited RT DATE OF EXAM: 08/01/2021 COMPARISON: Yesterday HISTORY: Post reduction TECHNIQUE: 6 views FINDINGS: 6 fluoroscopic images were obtained at show fairly good anatomic reduction of the trimalleo lar fracture of the right ankle. Ankle mortise is anatomic. IMPRESSION: Satisfactory reduction.
[2021-08-02] MEDS ORDERED: ONDANSETRON 4 MG/2 ML VIAL IVP PRN (07:00)
[2021-08-02 07:53] VITALS: BP 153/83; PULSE 70; RESP 17; TEMP 99.7
--- NOTE | 2021-08-02 09:13 | P.PN ---
Subjective Progress Note Date: 08/02/21 Patient has improving pain in her hip. She complains this morning of constipation. Objective - Vital Signs Vital signs: Vital Signs Temp 99.7 F H 08/02/21 07:53 Pulse 70 08/02/21 07:53 Resp 17 08/02/21 07:53 BP 153/83 08/02/21 07:53 Pulse Ox 97 08/02/21 07:53 Intake & Output 08/01/21 08/02/21 08/02/21 18:59 06:59 18:59 Intake Total 100 1300 Output Total 1510 1400 Balance -1410 -100 Weight 106.594 kg Intake: IV 100 Intake, IV Titration 900 Amount Sodium Chloride 0.9% 1, 900 000 ml @ 75 mls/hr IV . [id number] [facility] Rx#:[id number] Oral 400 Output: Urine 1510 1400 Other: Voiding Method Urinal Urinal # Voids 6 # Bowel Movements 0 - Exam Left LE: dressing c/d/i. Mild ecchymosis around thigh. Thigh soft. Moves ankle/toes up/down Abdomen: soft/compressible, diffusely non-tender - Labs CBC & Chem 7: 07/31/21 21:45 07/31/21 21:45 Assessment and Plan Assessment: POD#2 s/p in situ screw fixation for non-displaced subcapital femoral neck fracture Plan: 1. Continue TTWB left LE 2. ASA for DVT prophylaxis 3. PT. 4. Discharge planning 5. Appreciate IM medical assistance. Continue bowel regimen 6. Will check a vitamin D level given fragility fracture
--- NOTE | 2021-08-02 09:18 | P.PN ---
Subjective Progress Note Date: 08/02/21 Patients pain in his ankle is improved. Objective - Vital Signs Vital signs: Vital Signs Temp 99.7 F H 08/02/21 07:53 Pulse 70 08/02/21 07:53 Resp 17 08/02/21 07:53 BP 153/83 08/02/21 07:53 Pulse Ox 97 08/02/21 07:53 Intake & Output 08/01/21 08/02/21 08/02/21 18:59 06:59 18:59 Intake Total 100 1300 Output Total 1510 1400 Balance -1410 -100 Weight 106.594 kg Intake: IV 100 Intake, IV Titration 900 Amount Sodium Chloride 0.9% 1, 900 000 ml @ 75 mls/hr IV . [id number] [facility] Rx#:[id number] Oral 400 Output: Urine 1510 1400 Other: Voiding Method Urinal Urinal # Voids 6 # Bowel Movements 0 - Exam Resting comfortably in bed Right LE: splint c/d/i. Toes WWP with brisk CR. NO pain with PROM toes. - Labs CBC & Chem 7: 07/31/21 21:45 07/31/21 21:45 Assessment and Plan Assessment: s/p closed reduction and splinting of tri-mal ankle fracture-dislocation, current every day cigarette smoker. Plan: 1. NWB Right LE 2. elevate/ice 3. smoking cessation encouraged 4. Mobilize with PT 5. Discharge home today
--- NOTE | 2021-08-03 08:50 | FL ---
Fluoroscopy INDICATION: ] Reduction right ankle FINDINGS: Fluoroscopy time: 5 seconds. Images obtained: 0. IMPRESSIONS: 1. Documentation of fluoroscopy.
== END 2021-08-02 11:09 | disposition home or self-care (01) | DRG 494 ==
LOC: EC 18:38 → 4SSUR 20:22
PROVIDERS: ADMIT Orthopaedic Surgery; ATTEND Orthopaedic Surgery
PROC: 0QSG04Z Reposition Right Tibia with Internal Fixation Device, Open Approach (ICD-10-PCS; 2021-08-01)
PROC: 0QSH34Z Reposition Left Tibia with Internal Fixation Device, Percutaneous Approach (ICD-10-PCS; 2021-08-01)
PROC: 2W3QX1Z Immobilization of Right Lower Leg using Splint (ICD-10-PCS; 2021-08-01)
PROC: 8E0YXBF Computer Assisted Procedure of Lower Extremity, With Fluoroscopy (ICD-10-PCS; 2021-08-01)
PROC: 0QSJ34Z Reposition Right Fibula with Internal Fixation Device, Percutaneous Approach (ICD-10-PCS; principal; 2021-08-01 12:00)
DX: S82.851A Displaced trimalleolar fracture of right lower leg, initial encounter for closed fracture (principal); F17.210 Nicotine dependence, cigarettes, uncomplicated; I10 Essential (primary) hypertension; J44.9 Chronic obstructive pulmonary disease, unspecified; K21.9 Gastro-esophageal reflux disease without esophagitis; K59.00 Constipation, unspecified; W19.XXXA Unspecified fall, initial encounter; X50.1XXA Overexertion from prolonged static or awkward postures, initial encounter; Z79.899 Other long term (current) drug therapy; Z95.0 Presence of cardiac pacemaker; Z88.0 Allergy status to penicillin; Z87.19 Personal history of other diseases of the digestive system; Z86.79 Personal history of other diseases of the circulatory system; Z71.6 Tobacco abuse counseling; Z98.42 Cataract extraction status, left eye; Z98.41 Cataract extraction status, right eye
CPT/HCPCS: 27762; 71045; 80048; 82306; 85025; 85610; 85730; 96374; 99152; 99284

== ENCOUNTER 2021-08-14 10:50 | Day surgery (SDC) | payer MEDICARE ==
[2021-08-12 09:24] VITALS: BMI 30.2
[~2021-08-14 10:50] MED LIST: DEXAMETHASONE SOD PHOSPHATE 4 MG/ML 1 ML VIAL IV ONE; HYDROmorphone 0.5 MG/0.5 ML SYRINGE IVP PRN; LACTATED RINGERS 1,000 ML IV SCH; LIDOCAINE 1% (10MG/ML) FOR IV START INTRADERMA PRN; MIDAZOLAM 2 MG/2 ML VIAL IV PRN; ONDANSETRON 4 MG/2 ML VIAL IVP ONE
[2021-08-14 11:22] VITALS: TEMP 97.7
[2021-08-14] MEDS ORDERED: ONDANSETRON 4 MG/2 ML VIAL ONE (11:34)
[2021-08-14] MEDS ORDERED: MIDAZOLAM 2 MG/2 ML VIAL IVP ONE (11:44)
--- NOTE | 2021-08-14 12:33 | P.ANPRN ---
Procedure Note - Anesthesia - Nerve Block Performed Right Popliteal Single Time Out Performed: Yes Date of Procedure: 08/14/21 Procedure Start Time: 11:43 Procedure Stop Time: 11:48 Location of Patient: PreOp Indication: Acute Post-Operative Pain, Requested by Surgeon Sedation Type: Sedate with meaningful contact maintained Preparation: Sterile Prep Position: Left Lateral Needle Types: Pajunk Needle Gauge: 21 Ultrasound used to visualize needle placement: Yes Ultrasound used to observe medication spread: Yes Blood Aspirated: No Pain Paresthesia on Injection Noted: No Resistance on Injection: Normal Image Stored and Saved: Yes Events: Uneventful and Well Tolerated (Ropivacaine 0.5% 20 mL plus dexamethasone 4 mg)
[2021-08-14] MEDS ORDERED: ePHEDrine SULFATE/0.9% NACL/PF 50 MG/5 ML SYRINGE IV ONE (12:34)
[2021-08-14] MEDS ORDERED: DEXAMETHASONE SOD PHOSPHATE 4 MG/ML 1 ML VIAL ONE (12:34)
[2021-08-14] MEDS ORDERED: PROPOFOL 10 MG/ML 20 ML VIAL IV ONE (12:34)
[2021-08-14] MEDS ORDERED: fentaNYL (PF) 50 MCG/ML 2 ML AMP ONE (12:34)
[2021-08-14] MEDS ORDERED: SUCCINYLCHOLINE CHLORIDE 100 MG/5 ML SYR IV ONE (12:34)
[2021-08-14] MEDS ORDERED: LIDOCAINE 1% INJ 10MG/ML (20 ML MDV) ONE (12:34)
[2021-08-14] MEDS ORDERED: HYDROmorphone (PF) 1 MG/ML ONE (12:34)
[2021-08-14] MEDS ORDERED: ROPIVACAINE 5 MG/ML 30 ML VIAL ONE (12:34)
[2021-08-14] MEDS ORDERED: MIDAZOLAM 2 MG/2 ML VIAL ONE (12:34)
[2021-08-14] MEDS ORDERED: PHENYLEPHRINE-0.9% NACL SYG 1,000 MCG/10 ML SYRINGE ONE (12:34)
--- NOTE | 2021-08-14 12:34 | P.ANPRN ---
Procedure Note - Anesthesia - Nerve Block Performed Right Adductor Canal Single Time Out Performed: Yes Date of Procedure: 08/14/21 Procedure Start Time: 11:49 Procedure Stop Time: 11:53 Location of Patient: PreOp Indication: Acute Post-Operative Pain, Requested by Surgeon Sedation Type: Sedate with meaningful contact maintained Preparation: Sterile Prep Position: Supine Needle Types: Pajunk Needle Gauge: 21 Ultrasound used to visualize needle placement: Yes Ultrasound used to observe medication spread: Yes Blood Aspirated: No Pain Paresthesia on Injection Noted: No Resistance on Injection: Normal Image Stored and Saved: Yes Events: Uneventful and Well Tolerated (Ropivacaine 0.5% 20 mL plus dexamethasone 4 mg)
[2021-08-14] MEDS ORDERED: LACTATED RINGERS 1,000 ML IV ONE (13:38)
--- NOTE | 2021-08-14 14:34 | XR ---
EXAMINATION TYPE: XR ankle limited RT DATE OF EXAM: 08/14/2021 COMPARISON: NONE TECHNIQUE: six views submitted HISTORY: Post op FINDINGS: There is a prosthetic change in near anatomic alignment. There is soft tissue edema and emphysema. S ome of the orthopedic screws lie outside the fixation plate. There is a metallic density along the me dial margin of the distal tibia. Correlate clinically. IMPRESSION: 1. Postoperative change. Appears in near-anatomic alignment
--- NOTE | 2021-08-14 14:46 | FL ---
EXAMINATION TYPE: FL guidance operating room DATE OF EXAM: 08/14/2021 HISTORY: Fluoroscopy time 1 minute and 15 seconds of fluoroscopy provided. IMPRESSION: 1. Fluoroscopy time.
--- NOTE | 2021-08-14 14:56 | P.OP ---
Date of Procedure: 08/14/21 Preoperative Diagnosis: 1. Right trimalleolar ankle fracture dislocation 2. Current every day cigarette smoker 3. History of alcohol use 4. COPD Postoperative Diagnosis: Same Procedure(s) Performed: 1. Open reduction and internal fixation of right trimalleolar ankle fracture (open reduction and internal fixation of right medial and lateral malleolus, nonoperative management posterior malleolus) 2. Open reduction internal fixation right ankle syndesmosis 3. Manual application of joint stress by physician for radiography, right ankle 4. Application of short leg splint by physician, right ankle Anesthesia: KEZIA, regional Surgeon: Demarcus Estrada Weed Eradicator #1: Nuvia Oakley Estimated Blood Loss (ml): 20 IV fluids (ml): 1,200 Pathology: none sent Condition: stable Disposition: PACU Indications for Procedure: The patient is a very pleasant 65-year-old male with multiple medical problems including being a current cigarette smoker with COPD and chronic alcohol use who sustained a closed right trimalleolar ankle fracture 2 weekends ago. He was seen in the emergency department and was admitted for closed reduction and splint application of his prior hospitalization. I met with the patient after he was discharged in the office to discuss surgical treatment. We discussed the potential risks and competitions of surgery including but not limited to risks of anesthesia, superficial infection, deep infection, delayed wound healing, superficial wound necrosis, damage to local blood vessels or nerves, nonunion, malunion, symptomatically hardware, hardware failure, posterior medical arthritis, chronic pain, chronic swelling, and inability to regain preinjury level of function, need for further surgery including both hardware removal or ankle fusion. We also discussed the potential risks of medical complications including DVT, PE, pneumonia, pressure sores, heart attack, stroke, and possibly loss of life or limb. The patient understands it is a higher risk having a complication due to his current smoking and alcohol use. He was strongly advised to quit. He provided both his verbal and written consent to go forward with surgery. Description of Procedure: The patient was identified in preoperative holding and the correct right leg was marked with my initials. I removed the splint and there was wrinkling of the skin both medially and laterally. All the patient's questions were answered. The patient was given a popliteal and saphenous nerve block by anesthesia. The patient was then brought back to the operating room. He was positioned on the OR table. General anesthetic was administered. Prior to positioning the patient fluoroscopic images were taken of the left ankle including a mortise and lateral view to use as a guide during surgery. The tourniquet was applied to the proximal aspect of the right leg. The right leg was then prepped and draped in the standard sterile fashion. Prior to starting surgery timeout was performed identifying the correct patient, operative extremity, and procedure. The patient's leg was then elevated, exsanguinated with an Esmarch bandage, and the tourniquet was inflated to 250 mmHg. I began by making a straight lateral incision to the distal fibula. Skin incision with a scalpel and dissection was carried down carefully through subcutaneous tissue with tenotomy scissors. The superficial peroneal nerve was identified and carefully retracted. The periosteum was split distally over the fracture and the pressure over the peroneal muscles and split proximally. The fracture was identified. There was a butterfly fragment posteriorly. I began by reducing this to the proximal shaft. A 2.4 mm lag screw was placed across the fracture generating excellent compression. The proximal shaft was then reduced the distal lateral malleolus fracture. A 2.7 mm lag screw was placed across the fracture generating excellent compression. A one third tubular plate was then contoured over the lateral aspect of the fibula. 3 nonlocking 3.5 mm screws were placed proximally. 2 nonlocking 3.5 mm screws were placed distally bringing the plate down to bone. Due to the patient's relatively poor bone quality a locking screw was placed distally. Reduction of the fracture and placement of hardware was verified with fluoroscopy. Attention was then turned to the medial malleolus. A longitudinal incision was made over the medial malleolus. The saphenous vein was identified and carefully retracted anteriorly. The fracture was identified and freed from early consolidating hematoma. The medial malleolus fragment was then keyed into position and held with a [id number] reduction clamp. I placed 2 nonlocking 3.5 mm screws across the fracture both generating excellent compression. Next Attention was then turned to the syndesmosis. I dissected anteriorly to the fibula to visualize the anterior rim of the incisura. The syndesmosis appeared torn. A manual external rotation stress x-ray and Cotton test both showed widening of the syndesmosis. The clamp was placed gently across the syndesmosis. I visualized the reduction anteriorly. I then placed a syndesmotic tightrope to hold the reduction. At this point final fluoroscopic images were taken. The fibula appeared to be adequately reduced and out to length. The talus was anatomically reduced within the ankle mortise both on a mortise and true lateral. A manual external rotation stress x-ray showed no widening of the medial clear space or incisura. Both wounds were then thoroughly irrigated and closed in layers using monofilament lamar stitches for all layers. Skin incisions were reinforced with Dermabond. Sterile dressings were applied. The tourniquet was let down. The leg was cleansed and a well-padded bulky Bhatt splint was placed with the ankle in neutral. The patient was then awoken from his anesthetic, transferred from the OR table to the [facility], and brought to recovery having tolerated the procedure well. Nuvia eisenberg was required as skilled assignment desk assistant throughout the procedure. Plan: The patient is going to discharge home as an outpatient. He will be given Percocet for pain. Due to risk stratification we will give him aspirin twice a day for DVT prophylaxis 4 weeks as he has no other risk factors. I strongly encouraged both the patient and his daughter that it would be in his best interest to quit smoking and drinking alcohol. They understand that he is at a higher risk of having a complication particularly infection, delayed wound healing, nonunion, and malunion due to cigarette smoking.
[2021-08-14] MEDS ORDERED: SENNOSIDES-DOCUSATE SODIUM 1 EACH TAB PO PRN (14:59)
[2021-08-14] MEDS ORDERED: HYDROmorphone 0.5 MG/0.5 ML SYRINGE IVP PRN ×2 (14:59)
[2021-08-14] MEDS ORDERED: HYDROmorphone 0.2 MG/1 ML SYRINGE IVP PRN (14:59)
[2021-08-14] MEDS ORDERED: hydrOXYzine pamoate 25 MG CAP PO PRN (14:59)
[2021-08-14] MEDS ORDERED: HYDROcodone/APAP 5-325MG 1 EACH TAB PO PRN ×2 (14:59)
[2021-08-14] MEDS ORDERED: LACTATED RINGERS 1,000 ML IV SCH (15:00)
[2021-08-14 15:11] VITALS: RESP 16
[2021-08-14 16:05] VITALS: BP 110/73; PULSE 83
== END 2021-08-14 16:13 | disposition home or self-care (01) ==
LOC: OR 10:50
PROVIDERS: ATTEND Orthopaedic Surgery
DX: S82.851A Displaced trimalleolar fracture of right lower leg, initial encounter for closed fracture (principal); J44.9 Chronic obstructive pulmonary disease, unspecified; I10 Essential (primary) hypertension; F17.210 Nicotine dependence, cigarettes, uncomplicated; K21.9 Gastro-esophageal reflux disease without esophagitis; Z88.0 Allergy status to penicillin; Z79.899 Other long term (current) drug therapy
CPT/HCPCS: 27823; 27814; 64447; 64999; 76942; 73600; C1713; J2250; J1100; J0690; J2405; J2001; J3010; J1170; J2795; J2370; J0330; J2704